=== PATIENT | female | born 1975 | race Caucasian/White ===

== ENCOUNTER → 2018-01-10 09:58 | Outpatient (BNVA) | payer MEDICARE, MEDICAID, SELFPAY | PROVIDERS: PCP Internal Medicine; Visit Provider Orthopaedic Surgery | DX: M17.11 Unilateral primary osteoarthritis, right knee (principal) | CPT/HCPCS: 20610; 99213; J7325 ==

== ENCOUNTER 2018-02-13 16:51 | Outpatient (REF) | payer MEDICARE, MEDICAID, SELFPAY ==
[2018-02-13 21:11] LABS: ALT 41 U/L (12-78); AST 26 U/L (15-37); Albumin 3.9 g/dL (3.4-5.0); Alkaline Phosphatase 101 U/L (46-116); Anion Gap 13.7 mmol/L (3-11); BUN 12 mg/dL (7-18); Bilirubin, Total 0.3 mg/dL (0.2-1.0); CO2 25.3 mmol/L (21.0-32.0); CREATININE 1.12 mg/dL (0.55-1.02); Calcium 9.6 mg/dL (8.5-10.1); Chloride 104 mmol/L (98-107); Estimated GFR 53.09 (mL/min/1.73m2); Glucose 87 mg/dL (70-100); Potassium 4.1 mmol/L (3.5-5.1); Sodium 143 mmol/L (136-145); Total Protein 7.4 g/dL (6.4-8.2)
== END 2018-02-13 17:11 ==
LOC: NCHCN 16:51
PROVIDERS: PCP Internal Medicine; Visit Provider Nurse Practitioner
DX: R94.4 Abnormal results of kidney function studies (principal)
CPT/HCPCS: 80053

== ENCOUNTER → 2018-02-21 09:05 | Outpatient (BNVA) | payer MEDICARE, MEDICAID, SELFPAY | PROVIDERS: PCP Internal Medicine; Visit Provider Nurse Practitioner Adult Health | DX: G80.9 Cerebral palsy, unspecified (principal); R53.1 Weakness; G44.209 Tension-type headache, unspecified, not intractable | CPT/HCPCS: 99204; 99215 ==

== ENCOUNTER 2018-03-03 01:08 | Outpatient (CLI) | payer MEDICARE, MEDICAID, SELFPAY ==
--- NOTE | 2018-03-03 08:41 | DI.MRI_ITS ---
SYMPTOM/DIAGNOSIS: NEW LT SIDED WEAKNESS, H/O CEREBRAL PALSY, R53.1 BRAIN MRI: Routine noncontrast examination was performed. There is mild increased T 2 signal in the periventricular region bilaterally. This is nonspecific. No evidence of an intracranial mass is seen. The ventricles and sulci are consistent with the patient's age. The ventricles are intact. The basilar cisterns are patent. The diffusion weighted images have a normal appearance. No evidence of an acute infarct is seen. There is no evidence of intracranial hemorrhage. There is a normal flow void seen in the [place]. There is near complete opacification of the left maxillary sinus and complete opacification of the right maxillary sinus. This may reflect chronic sinusitis but multiple polyps or mucus retention cysts cannot be excluded. There is mucosal thickening seen in the sphenoid sinuses and ethmoid air cells bilaterally. The orbits and retro-orbital soft tissues are grossly unremarkable. IMPRESSION: Mild T 2 hyperintensity in the periventricular white matter. This is nonspecific. This may represent early small vessel ischemic disease or other demyelinating process. Post contrast MRI should be considered for further evaluation. Findings of pansinusitis. No evidence of an acute infarct.
== END 2018-03-03 01:28 ==
PROVIDERS: PCP Internal Medicine; Visit Provider Nurse Practitioner Adult Health
DX: R29.898 Other symptoms and signs involving the musculoskeletal system (principal); R53.1 Weakness; G80.9 Cerebral palsy, unspecified; J32.4 Chronic pansinusitis
CPT/HCPCS: 70551

== ENCOUNTER 2018-03-10 01:29 | Outpatient (CLI) | payer MEDICARE, MEDICAID, SELFPAY ==
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
== END 2018-03-10 01:49 ==
PROVIDERS: PCP Internal Medicine; Visit Provider Psychiatry & Neurology Neurology
DX: R51 Headache (principal); M25.519 Pain in unspecified shoulder; M54.2 Cervicalgia; R25.2 Cramp and spasm; G80.2 Spastic hemiplegic cerebral palsy
CPT/HCPCS: 72141

== ENCOUNTER → 2018-04-20 12:36 | Outpatient (BNVA) | payer MEDICARE, MEDICAID, SELFPAY | PROVIDERS: PCP Internal Medicine; Visit Provider Psychiatry & Neurology Neurology | DX: G80.9 Cerebral palsy, unspecified (principal); R53.1 Weakness; R29.2 Abnormal reflex | CPT/HCPCS: 99214 ==

== ENCOUNTER 2018-05-19 00:29 | Outpatient (CLI) | payer MEDICARE, MEDICAID, SELFPAY ==
--- NOTE | 2018-05-19 08:45 | DI.MRI_ITS ---
SYMPTOMS/DIAGNOSIS: NEW LEFT BABINSKI REFLEX AND LEFT WEAKNESS, HYPERREFLEXIA, R29.2, ABNORMAL REFLEX MRI OF THE THORACIC SPINE: Routine noncontrast examination was performed. There is normal signal in the spinal cord. No evidence of a mass is seen in the spinal canal. There is normal marrow signal. No focal disc herniation, central spinal canal or neural foraminal stenosis is seen in the thoracic spine. IMPRESSION: Negative MRI of the thoracic spine.
== END 2018-05-19 00:49 ==
PROVIDERS: PCP Internal Medicine; Visit Provider Psychiatry & Neurology Neurology
DX: R29.2 Abnormal reflex (principal); R29.898 Other symptoms and signs involving the musculoskeletal system
CPT/HCPCS: 72146

== ENCOUNTER 2018-05-22 07:00 | Outpatient (CLI) | payer MEDICARE, MEDICAID, SELFPAY ==
--- NOTE | 2018-05-22 12:45 | DI.MAMMO_ITS ---
SYMPTOM/DIAGNOSIS: SCREENING, Z12.31, FAM HX, Z80.3, BASELINE MAMMOGRAMS: Mammograms were interpreted according to the usual protocol including computer analysis with CAD system, tomosynthesis and C view imaging. No priors. Breast density B. No suspicious masses or microcalcifications are seen. There is no definite evidence of malignancy. IMPRESSION: Negative mammogram. Routine screening is recommended. Category I. MQSA ASSESSMENT OF FINDINGS: Negative. Category 1. Patient will receive a letter notifying them of these results. BI-RADS category B. There are scattered areas of fibroglandular density.
== END 2018-05-22 07:20 ==
PROVIDERS: PCP Internal Medicine; Visit Provider Nurse Practitioner
DX: Z12.31 Encounter for screening mammogram for malignant neoplasm of breast (principal); Z80.3 Family history of malignant neoplasm of breast
CPT/HCPCS: 77063; 77067

== ENCOUNTER 2018-06-12 14:25 | Emergency (ER) | payer MEDICARE, MEDICAID, SELFPAY ==
[2018-06-12 14:32] VITALS: BP 164/96; PULSE 90; RESP 20; TEMP 37.1; O2SAT 97
--- NOTE | 2018-06-12 14:42 | W.ED.GENAD ---
Discharge Plan Disposition Patient Disposition: HOME Condition: Stable Discharge Details Chief Complaint: Fever Clinical Impression: Acute frontal sinusitis Primary Care Provider: Rodrigo Corrales ED Provider: Felix Petersen Home Meds and New Rx's Prescriptions: No Action betamethasone dipropionate 45 GM cream 45 gm Topical BID RF: 0 omeprazole [Prilosec] 20 MG capsule,delayed release(DR/EC) 20 mg PO DAILY RF: 0 Maalox Maximum Strength 355 ML suspension 10 ml PO PRN RF: 0 penicillin V potassium 250 mg Tablet 250 mg PO BID RF: 0 Medical Decision Making 42-year-old female who is on day 2 of Augmentin for a sinus infection diagnosed in ENT clinic. She was concerned because she had a low-grade fever at home today and thought that she should be reevaluated. She arrives a temperature of 37, pulse 90, mild hypertension. Her history and exam are consistent with acute maxillary sinusitis. She will continue the prescribed Augmentin. She is given ibuprofen in the emergency department and is stable for discharge to home HPI General Mode of arrival: ambulatory. Date/Time Provider Initiated Documentation: 06/12/18 14:31. Limitations to Documentation: no limitations. Information obtained by: patient. History of Present Illness 42 year old F presents to the emergency department with the chief complaint of On Augmentin for sinus infection, now with fever at home, Quality is described as aching, and is localized to the head and face. Patient reports no radiation. Patient started experiencing this hour(s) and it has been constant. No relieving factors improve symptom(s), No exacerbating factors reported . Patient notes no other symptoms.. Patient did receive the following treatments prior to arrival, none Related Data Home Medications Medication Instructions Recorded Confirmed alum-mag hydroxide-simeth [Maalox 10 ml PO PRN ml 04/26/13 06/12/18 Maximum Strength Susp] betamethasone dipropionate 45 gm TOPICAL BID script 04/26/13 06/12/18 omeprazole [Prilosec] 20 mg PO DAILY tab-cap 04/26/13 06/12/18 penicillin V potassium 250 mg PO BID 06/12/18 06/12/18 Allergies Allergy/AdvReac Type Severity Reaction Status Date / Time oxycodone HCl Allergy Intermediate Agitation Unverified 06/12/18 14:35 [From OxyContin] cyclobenzaprine HCl Allergy Mild Unverified 06/12/18 14:35 [From Flexeril] ketoprofen Allergy Mild Skin Rash Unverified 06/12/18 14:35 acetaminophen [From Percocet] Allergy Unverified 06/12/18 14:35 TIDE Allergy Unknown Uncoded 06/12/18 14:35 FABRIC SOFTNER Allergy Uncoded 06/12/18 14:35 ORUVAL Allergy Uncoded 06/12/18 14:35 General Stated Complaint: Fever EILEEN: 4 Review of Systems Review of Systems 6 systems reviewed and otherwise - [facility] Medical History Tobacco use (Acute) Obesity (Chronic) Depression (Chronic) Cerebral palsy (Chronic) Asthma (Chronic) Dermatitis (Acute) Heartburn (Acute) Headache (Acute) Elevated serum creatinine (Acute) Hyperlipidemia (Chronic) H/O: hysterectomy (Chronic) delivery delivered (Acute) Anxiety disorder (Chronic 04/30/13) Primary osteoarthritis of right knee (Chronic) Surgical History History of toe surgery (Acute) S/P right knee arthroscopy (Acute) Family History Mother Emphysema lung Hypertension Father Diabetes Hypertension Social History lives independently: Yes current occupational status: disabled Smoking and Tabacco status: Current every day alcohol intake: current alcohol intake frequency: holidays/special occasions only substance use type: does not use Exam Narrative Exam Narrative: GEN: awake, alert, oriented 3. Pleasant, well groomed, interactive. HEAD: Normocephalic, atraumatic ENT: Mucous membranes moist, oropharynx unremarkable, External ear exam unremarkable, tympanic membranes clear bilaterally. Bilateral frontal sinus tenderness to percussion EYES: PERRL, EOMI NECK: Full ROM, no DRU, no menigismus CHEST/RESP: Nontender, clear to auscultation bilateral, no wheeze/rhonchi/rales CARDIOVASCULAR: RRR, no murmur, rub roxi. 2+ Rad pulse bilateral ABDOMEN: Soft, nontender, no mass. +Bowel sounds EXT: Full ROM, no edema, no rash Neuro: Grossly normal neurologic exam, conversant, interactive. Psych: Speech fluent, thoughts congruent, affect normal Course Vital Signs Temperature 37.1 C 06/12/18 14:32 Pulse 90 06/12/18 14:32 Respiratory Rate 20 06/12/18 14:32 Blood Pressure 164/96 H 06/12/18 14:32 Pulse Oximetry 97 06/12/18 14:32 Temperature 37.1 C 06/12/18 14:32 Temperature Source Temporal Artery Scan 06/12/18 14:32 Pulse 90 06/12/18 14:32 Respiratory Rate 20 06/12/18 14:32 Respiratory Effort Non-Labored 06/12/18 14:32 Blood Pressure 164/96 H 06/12/18 14:32 Blood Pressure Position Sitting 06/12/18 14:32 Pulse Oximetry 97 06/12/18 14:32 Oxygen Delivery Method Room Air 06/12/18 14:32 Oxygen Flow Rate 0 06/12/18 14:32 Pain Level 4 06/12/18 14:32
--- NOTE | 2018-06-12 14:45 | ED.GENADUL_ITS ---
Discharge Plan Disposition Patient Disposition: HOME Condition: Stable Discharge Details Chief Complaint: Fever Clinical Impression: Acute frontal sinusitis Primary Care Provider: Rodrigo Corrales ED Provider: Felix Petersen Home Meds and New Rx's Prescriptions: No Action betamethasone dipropionate 45 GM cream 45 gm Topical BID RF: 0 omeprazole [Prilosec] 20 MG capsule,delayed release(DR/EC) 20 mg PO DAILY RF: 0 Maalox Maximum Strength 355 ML suspension 10 ml PO PRN RF: 0 penicillin V potassium 250 mg Tablet 250 mg PO BID RF: 0 Medical Decision Making 42-year-old female who is on day 2 of Augmentin for a sinus infection diagnosed in ENT clinic. She was concerned because she had a low-grade fever at home today and thought that she should be reevaluated. She arrives a temperature of 37, pulse 90, mild hypertension. Her history and exam are consistent with acute maxillary sinusitis. She will continue the prescribed Augmentin. She is given ibuprofen in the emergency department and is stable for discharge to home HPI General Mode of arrival: ambulatory . Date/Time Provider Initiated Documentation: 06/12/18 14:31 . Limitations to Documentation: no limitations . Information obtained by: patient . History of Present Illness 42 year old F presents to the emergency department with the chief complaint of On Augmentin for sinus infection, now with fever at home, Quality is described as aching, and is localized to the head and face. Patient reports no radiation. Patient started experiencing this hour(s) and it has been constant. No relieving factors improve symptom(s), No exacerbating factors reported . Patient notes no other symptoms.. Patient did receive the following treatments prior to arrival, none Related Data Home Medications Medication Instructions Recorded Confirmed alum-mag hydroxide-simeth [Maalox 10 ml PO PRN ml 04/26/13 06/12/18 Maximum Strength Susp] betamethasone dipropionate 45 gm TOPICAL BID script 04/26/13 06/12/18 omeprazole [Prilosec] 20 mg PO DAILY tab-cap 04/26/13 06/12/18 penicillin V potassium 250 mg PO BID 06/12/18 06/12/18 Allergies Allergy/AdvReac Type Severity Reaction Status Date / Time oxycodone HCl Allergy Intermediate Agitation Unverified 06/12/18 14:35 [From OxyContin] cyclobenzaprine HCl Allergy Mild Unverified 06/12/18 14:35 [From Flexeril] ketoprofen Allergy Mild Skin Rash Unverified 06/12/18 14:35 acetaminophen [From Percocet] Allergy Unverified 06/12/18 14:35 TIDE Allergy Unknown Uncoded 06/12/18 14:35 FABRIC SOFTNER Allergy Uncoded 06/12/18 14:35 ORUVAL Allergy Uncoded 06/12/18 14:35 General Stated Complaint: Fever EILEEN: 4 Review of Systems Review of Systems 6 systems reviewed and otherwise - [facility] Medical History Tobacco use (Acute) Obesity (Chronic) Depression (Chronic) Cerebral palsy (Chronic) Asthma (Chronic) Dermatitis (Acute) Heartburn (Acute) Headache (Acute) Elevated serum creatinine (Acute) Hyperlipidemia (Chronic) H/O: hysterectomy (Chronic) delivery delivered (Acute) Anxiety disorder (Chronic 04/30/13) Primary osteoarthritis of right knee (Chronic) Surgical History History of toe surgery (Acute) S/P right knee arthroscopy (Acute) Family History Mother Emphysema lung Hypertension Father Diabetes Hypertension Social History lives independently: Yes current occupational status: disabled Smoking and Tabacco status: Current every day alcohol intake: current alcohol intake frequency: holidays/special occasions only substance use type: does not use Exam Narrative Exam Narrative: GEN: awake, alert, oriented 3. Pleasant, well groomed, interactive. HEAD: Normocephalic, atraumatic ENT: Mucous membranes moist, oropharynx unremarkable, External ear exam unremarkable, tympanic membranes clear bilaterally. Bilateral frontal sinus tenderness to percussion EYES: PERRL, EOMI NECK: Full ROM, no DRU, no menigismus CHEST/RESP: Nontender, clear to auscultation bilateral, no wheeze/rhonchi/rales CARDIOVASCULAR: RRR, no murmur, rub roxi. 2+ Rad pulse bilateral ABDOMEN: Soft, nontender, no mass. +Bowel sounds EXT: Full ROM, no edema, no rash Neuro: Grossly normal neurologic exam, conversant, interactive. Psych: Speech fluent, thoughts congruent, affect normal Course Vital Signs Temperature 37.1 C 06/12/18 14:32 Pulse 90 06/12/18 14:32 Respiratory Rate 20 06/12/18 14:32 Blood Pressure 164/96 H 06/12/18 14:32 Pulse Oximetry 97 06/12/18 14:32 Temperature 37.1 C 06/12/18 14:32 Temperature Source Temporal Artery Scan 06/12/18 14:32 Pulse 90 06/12/18 14:32 Respiratory Rate 20 06/12/18 14:32 Respiratory Effort Non-Labored 06/12/18 14:32 Blood Pressure 164/96 H 06/12/18 14:32 Blood Pressure Position Sitting 06/12/18 14:32 Pulse Oximetry 97 06/12/18 14:32 Oxygen Delivery Method Room Air 06/12/18 14:32 Oxygen Flow Rate 0 06/12/18 14:32 Pain Level 4 06/12/18 14:32
[2018-06-12] MEDS: Ibuprofen 800 MG TAB PO (14:52)
[2018-06-12 15:06] VITALS: BP 164/96; PULSE 90; RESP 20; TEMP 37.1; O2SAT 97
== END 2018-06-12 14:55 | disposition home or self-care (01) ==
LOC: ER 14:50
PROVIDERS: Emergency Provider Emergency Medicine; PCP Internal Medicine
DX: J01.10 Acute frontal sinusitis, unspecified (principal)
CPT/HCPCS: 99282

== ENCOUNTER 2018-07-27 13:44 | Outpatient (CLI) | payer MEDICARE, MEDICAID, SELFPAY | END 2018-07-27 14:04 | PROVIDERS: PCP Internal Medicine; Visit Provider Orthopaedic Surgery | DX: M17.11 Unilateral primary osteoarthritis, right knee (principal) | CPT/HCPCS: 20610; 99211; 99212; J7325 ==

== ENCOUNTER 2020-06-26 16:31 | Outpatient (REF) | payer MEDICARE, MEDICAID, SELFPAY ==
[2020-06-26 20:10] LABS: HCT 48.4 % (36.0-46.0); HGB 16.1 g/dL (11.2-15.7); MCH 28.4 pg (27.0-33.0); MCHC 33.3 % (32.0-36.0); MCV 85.4 fL (80-95); MPV 10.2 fL (8.0-11.0); Platelet Count 325 10^3/uL (130-400); RBC 5.67 10^6/uL (3.93-5.22); RDW 14.5 % (11.7-14.6); RDW-SD 45.2 fL; WBC 10.11 10^3/uL (4.4-10.8)
[2020-06-26 20:32] LABS: ALT 69 U/L (14-59); AST 38 U/L (15-37); Albumin 4.2 g/dL (3.4-5.0); Alkaline Phosphatase 106 U/L (46-116); Anion Gap 14.3 mmol/L (3-11); BUN 17 mg/dL (7-18); Bilirubin, Total 0.3 mg/dL (0.2-1.0); CO2 23.7 mmol/L (21.0-32.0); CREATININE 1.1 mg/dL (0.55-1.02); Calcium 9.7 mg/dL (8.5-10.1); Calculated LDL 202 mg/dL (<100); Chloride 103 mmol/L (98-107); Cholesterol 278 mg/dL (<200); Estimated GFR 53.71 (mL/min/1.73m2); Glucose 88 mg/dL (74-106); HDL Cholesterol 48 mg/dL (40-60); Sodium 141 mmol/L (136-145); Total Protein 7.7 g/dL (6.4-8.2); Triglyceride 144 mg/dL (<150)
[2020-06-26 20:39] LABS: Hemoglobin A1C 5.7 % (<5.7)
== END 2020-06-26 16:32 | disposition home or self-care (01) ==
LOC: NCHCN 16:31
PROVIDERS: PCP Internal Medicine; Visit Provider Family Medicine
DX: R03.0 Elevated blood-pressure reading, without diagnosis of hypertension (principal); E78.5 Hyperlipidemia, unspecified; G80.9 Cerebral palsy, unspecified
CPT/HCPCS: 80053; 80061; 85027; 83036

== ENCOUNTER 2021-02-12 14:37 | Outpatient (CLI) | payer MEDICARE, MEDICAID, SELFPAY ==
--- NOTE | 2021-02-12 10:15 | DI.RAD_ITS ---
Exam(s) XR KNEE RT 4V AP,LAT,ERMA,PAT EXAM: XR KNEE RT 4V AP,LAT,ERMA,PAT CLINICAL HISTORY: eval R knee pain TECHNIQUE: COMPARISON: CR RIGHT KNEE 3 VIEWS from 03/09/2016 FINDINGS: Five views were obtained. Cartilaginous joint spaces appear fairly well maintained. No significant knee joint effusion seen. No bony or soft tissue abnormality seen. IMPRESSION: Negative examination of the knee. RADIATION DOSE DELIVERED: Total DLP
== END 2021-02-12 14:38 | disposition home or self-care (01) ==
LOC: DIORS 14:38
PROVIDERS: PCP Internal Medicine; Referring Provider Internal Medicine; Visit Provider Student in an Organized Health Care Education/Training Program
DX: M17.11 Unilateral primary osteoarthritis, right knee (principal); G80.9 Cerebral palsy, unspecified; M25.561 Pain in right knee
CPT/HCPCS: 99213; 73564

== ENCOUNTER 2021-03-09 00:29 | Outpatient (CLI) | payer MEDICARE, MEDICAID, SELFPAY ==
--- NOTE | 2021-03-09 06:45 | DI.MRI_ITS ---
Exam(s) MR LOWER JOINT RT WO EXAM: MR LOWER JOINT RT WO CLINICAL HISTORY: knee pain, degenerative joint disease rt knee,m17.11. TECHNIQUE: Multiplanar multisequence MRI was performed. COMPARISON: MR MRI R LOWER JOINT WO CONT from 02/24/2017 CR XR KNEE RT 4V AP,LAT,ERMA,PAT from 02/12/2021 FINDINGS: BONES: There is no fracture or contusion pattern. At the inferior aspect of the lateral patellar face t, there is thinning of the articular cartilage and subchondral edema. JOINTS: Articular cartilage is otherwise unremarkable. There is a small amount of fluid in the joint space. TENDONS: Extensor mechanism: Unremarkable. Medial retinaculum: Unremarkable. Lateral retinaculum: Unremarkable. Popliteus: Unremarkable. MUSCLES: Unremarkable. MENISCI: The medial meniscus is unremarkable. The lateral meniscus is unremarkable. SOFT TISSUES: Unremarkable. LIGAMENTS: Anterior Cruciate: Unremarkable. Posterior Cruciate: Unremarkable. Medial Collateral:Unremarkable. Lateral Collateral: Unremarkable. OTHER: IMPRESSION: 1. No evidence of meniscal or ligament tear. 2. Chondromalacia patella. DATA REPOSITORY:
== END 2021-03-09 00:49 ==
PROVIDERS: PCP Internal Medicine; Visit Provider Student in an Organized Health Care Education/Training Program
DX: M25.561 Pain in right knee (principal); M25.461 Effusion, right knee; M17.11 Unilateral primary osteoarthritis, right knee; M22.41 Chondromalacia patellae, right knee
CPT/HCPCS: 73721

== ENCOUNTER → 2021-03-23 08:49 | Outpatient (BNVA) | payer MEDICARE, MEDICAID, SELFPAY | PROVIDERS: PCP Internal Medicine; Referring Provider Internal Medicine; Visit Provider Student in an Organized Health Care Education/Training Program | DX: M17.11 Unilateral primary osteoarthritis, right knee (principal); G81.11 Spastic hemiplegia affecting right dominant side; Z71.2 Person consulting for explanation of examination or test findings | CPT/HCPCS: 20610; J7318 ==

== ENCOUNTER 2022-08-25 12:43 | Outpatient (REF) | payer MEDICARE, MEDICAID, SELFPAY | END 2022-08-25 12:44 | disposition home or self-care (01) | LOC: LBN 12:43 | PROVIDERS: PCP Internal Medicine; Visit Provider Physician Assistant Medical | DX: J02.9 Acute pharyngitis, unspecified (principal) | CPT/HCPCS: 87081 ==

== ENCOUNTER → 2023-06-14 12:34 | Outpatient (CLI) | payer MEDICARE, MEDICAID, SELFPAY ==
--- NOTE | 2023-06-14 13:30 | DI.RAD_ITS ---
Exam(s) XR ANKLE RT COMPLETE EXAM: XR ANKLE RT COMPLETE CLINICAL HISTORY: evaluate, rt achilles tendinitis, rt ankle pain, M76.61, M25.571. TECHNIQUE: 2D digital imaging was performed of the right ankle. Three images were obtained. AP, la teral and oblique views were obtained. COMPARISON: No exams were available for comparison FINDINGS: BONES: No acute fracture is present. No bony destructive lesion is seen. JOINTS: The ankle mortise is normally aligned. SOFT TISSUE: Normal. IMPRESSION: 1. No acute fracture or dislocation. The joint spaces are well maintained. 2. There is concern for Achilles tendon injury, MRI should be obtained for further evaluation. DATA REPOSITORY: RADIATION DOSE DELIVERED:
== END ==
PROVIDERS: PCP Internal Medicine; Visit Provider Nurse Practitioner Family
DX: M76.61 Achilles tendinitis, right leg (principal); M25.571 Pain in right ankle and joints of right foot
CPT/HCPCS: 73610

== ENCOUNTER → 2023-06-22 01:13 | Outpatient (CLI) | payer MEDICARE, MEDICAID, SELFPAY ==
--- OUTSIDE RECORDS SUMMARY | 2023-06-22 01:14 | XMS_ITS | Continuity of Care Document ---
Author Name Unknown Organization [facility] Address [address] [place] [id number] Encounter [facility] NBR [id number] Date(s): 05/25/22 - 05/25/[address] [address]- Encounter Diagnosis Procedure and treatment not carried out, unspecified reason(Final) - Discharge Disposition: Home or Self Care Attending Physician: Jane Gunter Admitting Physician: Jane Gunter
--- NOTE | 2023-06-22 07:45 | DI.MRI_ITS ---
Exam(s) MR LOWER JOINT RT WO EXAM: MR LOWER JOINT RT WO CLINICAL HISTORY: evaluate achilles tendon,achilles tendinitis,M76.661 TECHNIQUE: Multiplanar multisequence MRI was performed without intravenous contrast. COMPARISON: No exams were available for comparison FINDINGS: SKIN: No evidence of ulcer nor subcutaneous tract. BONES/JOINTS: No evidence of fracture nor bone contusion. No prominent ankle joint effusion nor subt alar joint effusion. Small effusion noted in the peripheral aspect of the field of view within the a rticulation between the great toe metatarsal and medial cuneiform. The talar dome appears unremarkab le. The ankle mortise is maintained. There is no evidence of para-articular ganglion.There is no ev idence of osseous tarsal coalition. LIGAMENTS: The anterior and posterior tibiofibular and calcaneofibular ligaments are intact. The ante rior and posterior talofibular ligaments are intact. The deltoid ligament is intact. SINUS TARSI: There is no loss of the normal fat signal in this space. Interosseous ligament is intac t. There is no evidence of sinus tarsi ganglion cyst. MUSCULOTENDINOUS STRUCTURES: Achilles tendon: There is fusiform thickening of the Achilles tendon over a cephalocaudal distance of 10 cm. Maximum thickness is 11 mm. No evidence of abnormal acute signal within the tendon to sugge st acute tear. No evidence of insertional tendinitis. No enthesophyte on the posterior calcaneus. Plantar fascia: Unremarkable. No evidence of tear, abnormal thickening, nor abnormal nodularity. Anterior Extensor tendons: Unremarkable. Medial Tendons: Posterior Tibialis: Unremarkable. No tear or tenosynovitis evident. Flexor Digitorum longus: Unremarkable. No tear or tenosynovitis evident. Flexor Hallicus longus: Unremarkable. No tear or tenosynovitis evident. Lateral Tendons: Peroneus longus: Unremarkable. No tear nor tenosynovitis evident. Peroneus brevis:Unremarkable. No tear nor tenosynovitis evident. OTHER FINDINGS: None. IMPRESSION: 1. Main finding here is long length fusiform thickening of the Achilles tendon consistent with chroni c tendinitis/tendinosis. Maximum AP thickness is 11 mm. 2. No evidence of insertional tendinitis, enthesophyte, nor Danette deformity. DATA REPOSITORY:
== END ==
PROVIDERS: PCP Family Medicine; Visit Provider Nurse Practitioner Family
DX: M76.61 Achilles tendinitis, right leg (principal)
CPT/HCPCS: 73721

== ENCOUNTER → 2023-07-04 10:36 | Outpatient (BNVA) | payer MEDICARE, MEDICAID, SELFPAY | PROVIDERS: PCP Family Medicine; Referring Provider Family Medicine | DX: M67.88 Other specified disorders of synovium and tendon, other site (principal); G81.11 Spastic hemiplegia affecting right dominant side | CPT/HCPCS: 99213 ==

== ENCOUNTER → 2023-09-12 08:58 | Outpatient (BNVA) | payer MEDICARE, MEDICAID, SELFPAY | PROVIDERS: PCP Family Medicine; Referring Provider Family Medicine; Visit Provider Student in an Organized Health Care Education/Training Program | DX: M67.88 Other specified disorders of synovium and tendon, other site (principal) | CPT/HCPCS: 99213 ==

== ENCOUNTER 2024-03-09 06:01 | Day surgery (SDC) | payer MEDICARE, MEDICAID, SELFPAY ==
--- NOTE | 2024-03-08 18:54 | W.PREOPHP ---
Assessment and Plan Assessment and plan (1) Posterior subcapsular age-related cataract of left eye: Status: Acute Assessment and plan: Assessment: Visually significant cataract of both eyes. Plan: Cataract extraction with intraocular lens implant, left eye, followed by the right eye. (2) Nuclear age-related cataract, left eye: Status: Acute Assessment and plan: Assessment: Visually significant cataract of both eyes. Plan: Cataract extraction with intraocular lens implant, left eye, followed by the right eye (3) Posterior subcapsular age-related cataract, right eye: Status: Acute Assessment and plan: Assessment: Visually significant cataract of both eyes. Plan: Cataract extraction with intraocular lens implant, left eye, followed by the right eye (4) Nuclear age-related cataract, right eye: Status: Acute Assessment and plan: Assessment: Visually significant cataract of both eyes. Plan: Cataract extraction with intraocular lens implant, left eye, followed by the right eye History of Present Illness History of Present Illness Chief Complaint: Progressive decreased vision both eyes Narrative: The patient is a 48-year-old lady with history of progressive decreased vision in both eyes at both distance and near. She has difficulty with depth perception and has had recent falls. She has difficulty reading road signs and small print. She has a history of amblyopia in the left eye. Review of Systems All systems reviewed & are unremarkable except as noted in HPI and below PFSH All Active Problems Nuclear age-related cataract, left eye (Acute) Posterior subcapsular age-related cataract of left eye (Acute) Nuclear age-related cataract, right eye (Acute) Posterior subcapsular age-related cataract, right eye (Acute) Achilles tendinosis of right lower extremity (Acute) Corns and callosities (Acute) Knee osteoarthritis (Acute) Spastic hemiplegia affecting right dominant side (Acute) Degenerative joint disease of right knee (Chronic) Babinski reflex (Acute) Left-sided weakness (Acute) Tobacco use (Acute) Obesity (Chronic) Depression (Chronic) Cerebral palsy (Chronic) Asthma (Chronic) Dermatitis (Acute) Heartburn (Acute) Headache (Acute) Elevated serum creatinine (Acute) Hyperlipidemia (Chronic) Anxiety disorder (Chronic 04/30/13) S/P right knee arthroscopy (Acute) delivery delivered (Acute) History of toe surgery (Acute) H/O: hysterectomy (Chronic) 06/25/2003 Primary osteoarthritis of right knee (Chronic) Medical History Heart murmur Per pt. states she has had this all her life, and never had any issues with it Myopia Refractive amblyopia of both eyes Spongiotic dermatitis Arthropathy Hip pain Shoulder pain Sinusitis Family history of breast cancer Elevated blood pressure reading [place] of right foot Chronic constipation Knee joint pain Vitamin D deficiency Surgical History H/O right knee surgery Family History Mother Emphysema lung Hypertension Father Diabetes Hypertension Social History Smoking/Tobacco Use Status: Current every day Tobacco Type: cigarettes Smoking packs per day: 0.5 Smoking cigarettes per day: 10.0 Smoking risk assessment performed?: Yes Alcohol Intake: current Alcohol Intake frequency: holidays/special occasions only Drug use: Never Substance use type: does not use Housing: other Do you feel safe at home: Yes Do you feel safe in your relationship?: Yes Meds Allergies and Home Medications Allergies Allergy/AdvReac Type Severity Reaction Status Date / Time cyclobenzaprine HCl (From Allergy Mild numbs her Verified 03/09/24 06:21 Flexeril) legs ketoprofen Allergy Mild Skin Rash Verified 03/09/24 06:21 acetaminophen (From Percocet) Allergy Itching Verified 03/09/24 06:21 oxycodone HCl (From AdvReac Intermediate Agitation Verified 03/09/24 06:21 OxyContin) TIDE Allergy Unknown Hives Uncoded 03/09/24 06:21 FABRIC SOFTNER Allergy Hives Uncoded 03/09/24 06:21 ORUVAL Allergy Nausea Uncoded 03/09/24 06:21 Home Medications ?Medication ?Instructions ?Recorded ?Confirmed ?Type aluminum-mag hydroxide-simethicone 10 ml PO PRN 04/26/13 03/09/24 History 400 mg-400 mg-40 mg/5 mL oral susp (Maalox Maximum Strength) albuterol sulfate 90 mcg/actuation 2 puff inhalation Q6H PRN 05/28/21 03/09/24 History aerosol inhaler (ProAir HFA) diclofenac sodium 1 % topical gel 4 g topical QID PRN Right knee 06/10/21 03/09/24 Rx (Voltaren Arthritis Pain) pain #100 grams Exam Eyes Other: Most recent ocular examination is significant for corrected visual acuity of 20/40 in each eye. Extract motility is normal. Intraocular pressure is 13 OD, 15 OS. Slit-lamp examination shows mild nuclear cataract OU, but with significant posterior subcapsular opacity in each eye, left eye worse than right. Funduscopic examination shows disc cupping of 0.2 OU with normal vessels, macula, peripheral retina and vitreous. Resp Auscultation: clear to auscultation bilaterally Cardio Rate: regular rate Rhythm: regular rhythm
--- OUTSIDE RECORDS SUMMARY | 2024-03-09 06:03 | XMS_ITS | Encounter Summary ---
Author Organization [facility] [place] [address] Care Team Providers Care Tab Cutter Name Role Phone Rodrigo Corrales MD Primary Care Provider [phone] Reason for Visit * Reason Comments Suture / Staple Removal Encounter Details Date Type Department Care Team (Late st Contact Info) Description 10/05/2011 11:30 AM EDT Office Visit Dermatology [address] [place] [address] [address] [place] [address] Gopal Mata MD [address] [place] [address] RD, [place] [address] Spongiotic dermatitis (Primary Dx) Social History Tobacco Use Types Packs/Day Years Used Date Smoking Tobacco: Never Sex and Gender Information Value Date Recorded Sex Assigned at Not on file Gender Identity Not on file Sexual Orientation Not on file documented as of this encounter Progress Notes * Gopal Mata MD - 10/05/2011 11:56 AM EDT Problem: Followup spongiotic dermatitis with eosinophils. Thanh follows up, and the biopsy was read as spongiotic dermatitis with eosinophils. She has had some improvement with applications of the betamethasone dipropionate cream that she had from Dr. Neely to the pruritic sites, but she is still itchy. Physical examination reveals reduced erythema and reduced spongiosis, but still active dermatitic patches over either elbow and smaller areas just below the nape of her neck. Assessment and Plan: Spongiotic dermatitis with eosinophils. a. The patient started using an HD-type Tide detergent in her washing machine. I recommended trying Dreft fragrance free instead. b. I recommended that she use fragrance-free Downy and Snuggle. c. I recommended that the patient stop using her body wash and instead using Dove or Ivory bar soap. d. We went basically through the patient's skincare products and recommended across the board that she avoid fragrance products and try to simplify and decrease the number of topicals that she is using. e. May certainly continue with betamethasone dipropionate cream. As dermatitis clears, may add one product back a week and see if she can find the culprit. If dermatitis continues and does not ness with the above approach, I would recommend that the patient be seen for patch testing at [facility] [place] by [place]. Chopra. f. Return to the clinic p.r.n. Copy: Dustin Tipton A.P.R.N. documented in this encounter Plan of Treatment Not on file documented as of this encounter Visit Diagnoses Diagnosis Spongiotic dermatitis- Primary Contact dermatitis and other eczema, due to unspecified cause documented in this encounter Care Teams Tab Cutter Relationship Specialty Start Date End Date Rodrigo Corrales MD [address] [place] [id number] PCP - General 09/20/11 01/05/21 documented as of this encounter
--- OUTSIDE RECORDS SUMMARY | 2024-03-09 06:03 | XMS_ITS | Clinical Summary ---
Author Organization [facility] Address [address] [place] [address] Care Team Providers Care Medical Imaging Specialist Name Role Phone Rodrigo Corrales MD Primary Care Provider Allergies Active Allergy Reactions Criticality Noted Date Comments Other - See Comments 02/28/2018 Tide detergent; Needs to buy sensitive skin products. Oxycodone Itching High 02/28/2018 Oxycodone-Acetaminophe n Itching,Nausea Only High 02/28/2018 Medications Medication Sig Dispensed Refills Start Date End Date Status OMEPRAZOLE ORAL Take 10 mg by mouth daily. 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) GERD (gastroesophageal reflux disease) Social History Tobacco Use Types Packs/Day Years Used Date Smoking Tobacco: Every Day Cigarettes 0.3 26 Smokeless Tobacco: Never Interpersonal Safety Answer Date Record ed Physically Hurt Never 12/04/2019 Verbally Threaten Not on file 12/04/2019 Sex and Gender Information Value Date Recorded Sex Assigned at Not on file Gender Identity Not on file Sexual Orientation Not on file Obstetrics History Last Filed Vital Signs Vital Sign Reading Time Taken Comments Blood Pressure - - Pulse - - Temperature - - Respiratory Rate - - Oxygen Saturation - - Inhaled Oxygen Concentration - - Weight 83.9 kg (185 lb) 02/28/2018 1304 EDT Pt r eported Height 160 cm (5' 3) 02/28/2018 1304 EDT Pt rep orted Body Mass Index 32.77 02/28/2018 1304 EDT Plan of Treatment Health Maintenance Due Date Last Done Comments Hepatitis C Screen 1974 Pneumococcal Immunization (1 of 2 - PCV) 1980 Hepatitis B Vaccine (1 of 3 - 19+ 3-dose series) 12/05 COVID-19 Vaccine ( - 2022-24 season) 2022 Care Teams Medical Imaging Specialist Relationship Specialty Start Date End Date Rodrigo Corrales MD [address] [place] [address] PCP - General 03/11/15
--- OUTSIDE RECORDS SUMMARY | 2024-03-09 06:03 | XMS_ITS | Encounter Summary ---
Author Organization [facility] Address [address] [place] [address] Care Team Providers Care Space Officer Name Role Phone Rodrigo Corrales MD Primary Care Provider [phone] Encounter Details Date Type Department Care Team (Latest Contact Info) Description 07/19/2018 13:12 EDT - 07/19/2018 23:59 EDT Hospital Encounter [address] [address] Nina Jin MD [address] [place] [phone] Discharge Disposition: Home or Self Care Social History Tobacco Use Types Packs/Day Years Used Date Smoking Tobacco: Every Day Cigarettes 0.3 26 Smokeless Tobacco: Never Sex and Gender Information Value Date Recorded Sex Assigned at Not on file Gender Identity Not on file Sexual Orientation Not on file documented as of this encounter Functional Status Functional Status Response Date of Assess ment Because of a physical, menta l, or emotional condition, does this person have difficulty doing errands alone such as visiting a doctor's office or shopping? Yes 02/28/2018 Cognitive Status Response Date of Assessm ent Because of a physical, menta l, or emotional condition, does this person have serious difficulty concentrating, remembering, or making decisions? No 02/28/2018 documented as of this encounter Discharge Diagnoses Diagnosis R26.9 Unspecified abnormalities of gait and mobility-R26.9[ICD-10-CM] G80.2 Spastic hemiplegic cerebral palsy-G80.2[ICD-10-CM] documented in this encounter Medications at Time of Discharge Medication Sig Dispensed Refills Start Date End Date OMEPRAZOLE ORAL Take 10 mg by mouth daily. documented as of this encounter Discharge Disposition Disposition Code Departure Means Destination Home or Self Longterm documented in this encounter Plan of Treatment Not on file documented as of this encounter Visit Diagnoses Not on filedocumented in this encounter Care Teams Space Officer Relationship Specialty Start Date End Date Rodrigo Corrales MD [address] [place] [address] PCP - General 03/11/15 documented as of this encounter
--- OUTSIDE RECORDS SUMMARY | 2024-03-09 06:03 | XMS_ITS | Encounter Summary ---
Author Organization [facility] Address [address] [place] [address] Care Team Providers Care Form Grader Operator Name Role Phone Rodrigo Corrales MD Primary Care Provider [phone] Encounter Details Date Type Department Care Team (Late st Contact Info) Description 07/18/2017 Results Only Imaging [facility] [phone] Unknown, Provider, Social History Tobacco Use Types Packs/Day Years Used Date Smoking Tobacco: Never Assessed Sex and Gender Information Value Date Recorded Sex Assigned at Not on file Gender Identity Not on file Sexual Orientation Not on file documented as of this encounter Plan of Treatment Pending Results Name Type Priority Associated Diagnoses Date /Time OUTSIDE IMAGES - OTHER CHEST Imaging 07/18/2017 19:33 EDT OUTSIDE IMAGES - PLAIN FILM [facility] Imaging 07/18/2017 19:33 EDT OUTSIDE IMAGES - MR [facility] Imaging 0 07/18/2017 19:33 EDT documented as of this encounter Visit Diagnoses Not on filedocumented in this encounter Care Teams Form Grader Operator Relationship Specialty Start Date End Date Rodrigo Corrales MD [address] [place] [address] PCP - General 03/11/15 documented as of this encounter
--- OUTSIDE RECORDS SUMMARY | 2024-03-09 06:03 | XMS_ITS | Encounter Summary ---
[facility] [place] [address] Care Team Providers Care Optical Engineering Manager Name Role Phone Rodrigo Corrales MD Primary Care Provider [phone] Reason for Visit * Reason Onset Date Comments Medication Refill 11/26/2014 Encounter Details Date Type Department Care Team (Late st Contact Info) Description 11/26/2014 Refill [place] [id number] Jayden Crystal MD [facility] [place] [address] Chronic low back pain Social History Tobacco Use Types Packs/Day Years Used Date Smoking Tobacco: Never Sex and Gender Information Value Date Recorded Sex Assigned at Not on file Gender Identity Not on file Sexual Orientation Not on file documented as of this encounter Plan of Treatment Not on file documented as of this encounter Visit Diagnoses Diagnosis Chronic low back pain Lumbago documented in this encounter Care Teams Optical Engineering Manager Relationship Specialty Start Date End Date Rodrigo Corrales MD [address] [place] [address] PCP - General 09/20/11 01/05/21 documented as of this encounter
--- OUTSIDE RECORDS SUMMARY | 2024-03-09 06:03 | XMS_ITS | Encounter Summary ---
Author Organization [facility] Address [address] [place] [address] Care Team Providers Care Web Ui Designer Name Role Phone Rodrigo Corrales MD Primary Care Provider [phone] Reason for Visit * Reason Onset Date Comments Appointment Related 07/16/2019 Encounter Details Date Type Department Care Team (Late st Contact Info) Description 07/16/2019 Telephone [facility] Therapy - [address] [address] Therapy, Outpatient, Appointment Related Social History Tobacco Use Types Packs/Day Years [...] No 02/28/2018 documented as of this encounter Miscellaneous Notes * Telephone Encounter - Elaine Nolan - 07/16/2019 1303 EDT Telephone Information for Cancelled Appointments The patient called to cancel their appointment with Lillian Lin PT on 07/18/19 at 1:30pm due to transportation. Pt's fiance needs to arrange for time off from work to bring her. The patient will call back to rescjoseule Elaine Nolan 07/16/2019 documented in this encounter Plan of Treatment Not on file documented as of this encounter Visit Diagnoses Not on filedocumented in this encounter Care Teams Web Ui Designer Relationship Specialty Start Date End Date Rodrigo Corrales MD [address] [place] [address] PCP - General 03/11/15 documented as of this encounter
--- OUTSIDE RECORDS SUMMARY | 2024-03-09 06:03 | XMS_ITS | Encounter Summary ---
Author Organization [facility] Address [address] [place] [id number] Care Team Providers Care Police Superintendent Name Role Phone Rodrigo Corrales MD Primary Care Provider [phone] Reason for Referral * Consult (Routine) - Specialty Report Received Specialty Diagnoses / Procedures Referred By Cinthia steven Referred To Contact Diagnoses Spastic hemiplegic cerebral palsy (HCC-CMS) Paraparesis, bilateral (HCC-CMS) Nina Jin MD [address] [place] [phone] Nina Jin MD [address] [place] [phone] Referral ID Status Reason Start Date Expiration Date Visits Requested Visits Authorized [id number] Specialty Report Received Specialty Services Required 8 1 1 Question Answer Reason for Request: Hx R deedee CP. Now BLE problems. Falling. Scheduling Comments (optional ? describe specific scheduling needs if applicable): Probably won't want to scedule till spring but check with her when calling as to when she can get trasnportation. Comments Has R AFO. Hs been having BLE problems in last few years with falls. Reason for Visit * Reason Comments New Patient Visit * Consult, Test and Treat (Routine) - Closed Specialty Diagnoses / Procedures Referred By Contyvrose t Referred To Contact Physical Medicine and Rehab Diagnoses Cerebral palsy, unspecified (HCC-CMS) Greg Soares MD [address] [place] [address] [place] [phone] [facility] Phys Med Rehab [address] [place] [address] Referral ID Status Reason Start Date Expiration Date Visits Re quested Visits Authorized [id number] Closed 1 1 Encounter Details Date Type Department Care Team (Latest Contact Info) Description 02/28/2018 13:00 EDT Office Visit [facility] Physical Medicine & Rehabilitation [place] [address] Nina Jin MD [address] [place] [phone] Spastic hemiplegic cerebral palsy (HCC-CMS) (Primary Dx); Paraparesis, bilateral (HCC-CMS); Fibromyalgia; Fatigue, unspecified type Discharge Disposition: Auto Discharge Social History Tobacco Use Types Packs/Day Years Used Date Smoking Tobacco: Every Day Cigarettes 0.3 26 Smokeless Tobacco: Never Sex and Gender Information Value Date Recorded Sex Assigned at Not on file Gender Identity Not on file Sexual Orientation Not on file documented as of this encounter Last Filed Vital Signs Vital Sign Reading Time Taken Comments Blood Pressure - - Pulse - - Temperature - - Respiratory Rate - - Oxygen Saturation - - Inhaled Oxygen Concentration - - Weight 83.9 kg (185 lb) 02/28/2018 1304 EDT Pt r eported Height 160 cm (5' 3) 02/28/2018 1304 EDT Pt rep orted Body Mass Index 32.77 02/28/2018 1304 EDT documented in this encounter Functional Status Functional Status Response [...] as of this encounter Discharge Diagnoses Diagnosis G80.2 Spastic hemiplegic cerebral palsy-G80.2[ICD-10-CM] G82.20 Paraplegia, unspecified-G82.20[ICD-10-CM] M79.7 Fibromyalgia-M79.7[ICD-10-CM] documented in this encounter Discharge Disposition Disposition Code Departure Means Destination Auto Discharge documented in this encounter Progress Notes * Nnia Jin MD - 02/28/2018 1300 EDT Subjective: Patient ID: Thanh Daigle is an 42 y.o. female. Chief Complaint Patient presents with ??? New Patient Visit HPI Thanh is a 42-year-old woman being seen at the request of her primary care provider because of increased problems with her mobility, function, strength pre-existing cerebral palsy. Patient feels her biggest problem is increasing weakness and new problems on her left side that shedid not have before. Thanh Daigle has completed the pt. intake questionnaire with pain history,aggravating and alleviating factors, PMH, family history, pain diagram, rating scale and qualifiers. This is reviewed and placed in the chart. Prior evaluations are reviewed in the chart. CP initially affected R side, eyes, thinking. Can forget things. Braces: has AFO on right. She did not bring them today molded blue plastic with foot plate. Prior brace was double upright. Recently got knee brace. Does not wear them much. Has a 4WRW with seat walker that her friend gave her. Has a rx but [facility] or [facility] didn't pay for it. Uses it in the home but hardly at all. AN dif going out for a long time. Beeen getting tired for last year., CP affects right side. Now getting problems on left. ON right. Has dragged foot But is getting worse. Her whole arm is gettign weaker . Moving slower all over.No event. Can't open jars with left. Harder to grab things with left hand. Feels like butt and leg are sleeping, tingly. No h/a today. Has been getting more of them. Saw neurologist in [facility] Recently. Getting MRI of head and spine at [facility]. 2 years ago saw them for her CP as general check up but muscles were tight, hurt all the time. Has been falling, loses balance a lot, tripped in staris and doorway. She fell while walking her dog. Trips in house all them time Primo notes that she has been losing ground over last 5 years She states activities such as dressing herself she has had to sit down to do simple on socks or pants for the last 5 years. In the kitchen she has to be very cautious with activities to avoid instability or burning or cutting herself.. Joint pain: R knee, r hip , R shoulder constant. Worsening ove r last 6 years. Gets Synvisc for right knee every 6 months. LEss effective. Muscle pain : constant : everywhere. Fluctuates Does not vary with activity. LIkes hot showers for relief. Does not like to take meds. Spasticity: For her spastic muscles she has tried a variety of different medications. She cannot name all of them but she believes she is tried been tried on Flexeril and baclofen. They only made hertired and did not seem to help her symptoms. Bladder function: Reports bladder urgency Bowels: Reports bowel movement 1-2 times per week Swallowing: Denies any issues with swallowing. Vision: No double vision. Reports she is having increasing need for stronger corrective lenses. Neurologic no history of seizures, stroke Endocrine: Denies any abnormal blood sugars. Drives automatic. Used to drive standard. She does have 2 children and 2 grandchildren. She babysits for her granddaughter. She also reports she has 2 brothers and 2 sisters. Neither of them have any movement problems or muscular disorders or pain issues. No cerebral palsy in other family members. Patient Active Problem List Diagnosis ??? Spastic hemiplegic cerebral palsy ([facility]-CMS) No past medical history on file. Patient reports omeprazole for reflux No past surgical history on file. No family history on file. No reported motor disorder or neurologic problems in known family members. Social Social History Substance Use Topics ??? Smoking status: Current Every Day Smoker Packs/day: 0.25 Years: 26.00 Types: Cigarettes ??? Smokeless tobacco: Never Used ??? Alcohol use None No current outpatient prescriptions on file prior to visit. No current facility-administered medications on file prior to visit. Allergies Allergen Reactions ??? Oxycontin [Oxycodone] Itching ??? Percocet [Oxycodone-Acetaminophen] Itching and Nausea Only ??? Other - See Comments Tide detergent; Needs to buy sensitive skin products. ROS - See HPI Objective: Ht 160 cm (63) Comment: Pt reported Wt 83.9 kg (185 lb) Comment: Pt reported BMI 32.77 kg/m2 Physical Exam Alert Oriented x3. Speech intact and communicate adequately. Respirations even, unlabored. Able to raise arms fully overhead. Able to actively range arms and legs through relatively full functional range of motion. Bilateral plantar flexion contractures: L -5 degrees, R -20 degrees Cranial nerves: Noted to have left eye adducted at rest. He can perform some abduction but this is weak. Reflexes 3+ biceps, patellar. Ankles left 0 beat/right 3 beat clonus Sensation: Qualitatively reports that touch is slightly different through the right side than her left but she can appreciate sharp pins and needles and dull sensation. Palpatory exam: Multiple areas general muscle tenderness but specific focal tender points in the low cervical paraspinal muscles bilaterally, deltoid muscle insertions, costochondral junction of the second rib and sternum bilaterally, bilateral medial and lateral epicondyles, bilateral lower lumbarparaspinals, bilateral greater trochanters, bilateral medial knee joint line. Upper Extremity: Strength Deltoid EE EF WE WF FE FF LEFT 5 5 4 4 4 5 5 RIGHT 5 5 5 4 4 5 5 MMT LOWER QUARTER 02/28/2018 HIP: Left Right Flexion 5 4 Knee: Left Right Extension 5 5 Flexion 5 5 Ankle: Left Right Dorsiflexion 5 3 Plantarflexion 5 3 Gait and Station: Observation of gait cycle, balance, coordination, and alignment of trunk/extremities, functional ROM, tone, joint laxity for all extremities. Gait observed for each bracing option listed below. Abnormal/significant findings as below. Assistive device: None Assist: None 1. Shoes: Generally slow gait with bilateral hips abduction and internally rotated. She has some steppage pattern landing on her forefoot. The right foot showing some foot drop and decrease toe clearance through her swing phase. Assessment: Thanh presents with reported decline in function over the last 5 years and particularly over the last year. I agree with the plan that she is seeing the neurologist is recommending of getting an MRI of her brain and spine. Hopefully this means she is getting one done of her cervical spine and thoracic spine. Patient herself was not sure what spine areas are being checked. We have asked that when these studies are done that copies are also sent to our radiology system sowe can get the results. Overall she is showing more generalized spasticity and dysfunction affecting both lower extremitieswith both hips showing internal rotation and adduction. Adult patient with cerebral palsy can show decline in function related to the increase energy it takes to achieve the same amount of mobility they did when younger. It is not clear to me why her leftside would show new symptoms. Whether there were subclinical changes she was not that aware of now being brought on by increased physical strain or activity is one possibility. It appears she has not felt anti-spasticity medications have been helpful. I do not have a full list what may have been tried in past years but likely fatigue could be an issue with any of them. Her exam does seem consistent with a presentation of fibromyalgia with multiple trigger points and some generalized muscle pain. With this she can experience fatigue, cognitive changes. She might benefit from trials of medications such as gabapentin or Lyrica for the symptoms. SSRIs may be helpful in managing pain. To work with her gait challenges trying to manage control and her right ankle with the contracture and foot drop and even considering left side would be worth assessing in our Brace Clinic. Patient is willing to return for this evaluation so I will place a referral request. Plan: Thanh was seen today for new patient visit. Diagnoses and all orders for this visit: Spastic hemiplegic cerebral palsy (HCC-CMS) - AMB CONS/FOLLOW UP BRACE CLINIC (INCLUDES PHYSIATRY,PREPARATION ROOM MANAGER & PHYSICAL THERAPY) Paraparesis, bilateral (HCC-CMS) - AMB CONS/FOLLOW UP BRACE CLINIC (INCLUDES PHYSIATRY,PREPARATION ROOM MANAGER & PHYSICAL THERAPY) Fibromyalgia Fatigue, unspecified type Other orders - OMEPRAZOLE ORAL; Take 10 mg by mouth daily. Requested the patient follow-up with her primary care physician regarding consideration of medications for fibromyalgia. We will await results from her neurologic workup of MRIs that were ordered from a neurologist in her area. Will schedule her back in brace clinic to look at gait response to different bracing. Future Appointments Date Time Provider Department Center 07/19/2018 13:30 Nina Jin MD Rehab Med None 07/19/2018 13:30 Rodrigo Silver, PT [facility] None Portions of this document have been prepared with speech recognition software or keyboard database reporting consultant techniques. Minor irregularities or keyboarding misprints may be present. 60 minutes face-to face time with patient, 35 minutes in education/counseling on above issues. documented in this encounter Plan of Treatment Scheduled Referrals Name Type Priority Associated Diagnoses Orde r Schedule AMB CONS/FOLLOW UP BRACE CLINIC (INCLUDES PHYSIATRY,ORTHOTIS T & PHYSICAL THERAPY) Outpatient Referral Routine Spastic Hemiplegic Cerebral Palsy (Hcc-Cms) Paraparesis, Bilateral (Hcc-Cms) Ordered: 02/28/2018 documented as of this encounter Visit Diagnoses Diagnosis Spastic hemiplegic cerebral palsy (HCC-CMS)- Primary Congenital hemiplegia Paraparesis, bilateral (HCC-CMS) Paraplegia Fibromyalgia Mylagia and myositis, unspecified Fatigue, unspecified type documented in this encounter Historical Medications * This list may reflect changes made after this encounter. Medication Sig Dispensed Refills Start Date End Date OMEPRAZOLE ORAL Take 10 mg by mouth daily. added in this encounter Care Teams Police Superintendent Relationship Specialty Start Date End Date Rodrigo Corrales MD [address] [place] [address] PCP - General 03/11/15 documented as of this encounter
--- OUTSIDE RECORDS SUMMARY | 2024-03-09 06:03 | XMS_ITS | Encounter Summary ---
Author Organization [facility] Address [address] [place] [address] Care Team Providers Care Metal Furniture Assembly Supervisor Name Role Phone Unavailable Primary Care Provider Unavailabl e Encounter Details Date Type Department Care Team (Late st Contact Info) Description 06/22/2001 Results Only [facility] - [facility] conversion [address] [place] [address] Dariel Melo MD [address] [place], [place] [id number] Social History Tobacco Use Types Packs/Day Years Used Date Smoking Tobacco: Never Assessed Sex and Gender Information Value Date Recorded Sex Assigned at Not on file Gender Identity Not on file Sexual Orientation Not on file documented as of this encounter Plan of Treatment Not on file documented as of this encounter Procedures Procedure Name Priority Date/Time Associated Diagnosis Comments CYTOPATHOLOGY Routine 06/22/2001 0:00 EST documented in this encounter Results * CYTOPATHOLOGY (06/22/2001 0:00 EST) Pathology Report: CYTOPATHOLOGY REPORT Reports generated via electronic interface contain original data; however they are lacking the format of the original report. Caution should be taken when reading/interpreti ng unformatted reports. Name: ? DAIGLENISHA Obed ? Accession #: ? [id number] : ? 1975 (Age: 25) ??F ?Collect Date: ? 06/22/2001 Location: ? [facility] ? Receive Date: ? 06/23/2001 Provider: ?DARIEL MELO MD Copy to: ? Specimen/Source: ?ThinPrep Pap Test, Cervix/Endocervix Last Menstrual Period: ? 06/13/01 Hormonal/Contracep tive Status: ? Yes ? SPECIMEN ADEQUACY ? Satisfactory for Evaluation - transformation zone component present GENERAL CATEGORIZATION ? Negative for Intraepithelial Lesion or Malignancy INTERPRETATION ? Shift in maynor present suggestive of bacterial vaginosis. ? Document reviewed and electronically signed by: ? CALIXTO Rodgers(ASCP) ? Report Date: ??06/29/2001 08:04 End of Report [facility] 06/22/2001 06/23/2001 Dariel Melo MD PATHOLOGY ORDERABLES [facility] [address] [place] [address] documented in this encounter Visit Diagnoses Not on filedocumented in this encounter
--- OUTSIDE RECORDS SUMMARY | 2024-03-09 06:03 | XMS_ITS | Encounter Summary ---
Author Organization [facility] Address [address] [place] [address] Care Team Providers Care Heavy Repairer Name Role Phone Rodrigo Corrales MD Primary Care Provider [phone] Encounter Details Date Type Department Care Team (Late st Contact Info) Description 03/03/2018 Results Only Imaging [facility] [phone] Unknown, Provider, Social History Tobacco Use Types [...] No 02/28/2018 documented as of this encounter Plan of Treatment Pending Results Name Type Priority Associated Diagnoses Date /Time OUTSIDE IMAGES - MR NEURO Imaging 03/03/2018 15:54 EDT documented as of this encounter Visit Diagnoses Not on filedocumented in this encounter Care Teams Heavy Repairer Relationship Specialty Start Date End Date Rodrigo Corrales MD [address] [place] [address] PCP - General 03/11/15 documented as of this encounter
--- OUTSIDE RECORDS SUMMARY | 2024-03-09 06:03 | XMS_ITS | Encounter Summary ---
Author Organization [facility] Address [address] [place] [address] Care Team Providers Care Stone Cleaner Name Role Phone Rodrigo Corrales MD Primary Care Provider [phone] Reason for Visit * Reason Comments Gait Problem * Consult (Routine) - Specialty Report Received Specialty Diagnoses / Procedures Referred By Cinthia steven Referred To Contact Diagnoses Spastic hemiplegic cerebral palsy (HCC-CMS) Paraparesis, bilateral (HCC-CMS) Nina Jin MD [address] [place] [phone] Nina Jin MD [address] [place] [phone] Referral ID Status Reason Start Date Expiration Date Visits Requested Visits Authorized [id number] Specialty Report Received Specialty Services Required 8 1 1 Encounter Details Date Type Department Care Team (Latest Contact Info) Description 07/19/2018 13:30 EDT Office Visit [facility] Rehabilitation Therapy - [address] [address] Nina Jin MD [address] [place] [phone] Spastic hemiplegic cerebral palsy (HCC-CMS) (Primary Dx); Paraparesis, bilateral (HCC-CMS) Discharge Disposition: Auto Discharge Social History Tobacco [...] 02/28/2018 documented as of this encounter Discharge Disposition Disposition Code Departure Means Destination Auto Discharge documented in this encounter Progress Notes * Nina Jin MD, MD - 07/19/2018 1330 EDT Images from the original note were not included. Subjective: Patient ID: Thanh Daigle is an 42 y.o. female. Chief Complaint Patient presents with ??? Gait Problem HPI Here at my recommendation for gait/brace eval with R spastic hemiparesis and declining gait. Met her 02/28/18. Has her R AFO with her. Ridgeside Step with custom foot bed with increased capture of heel and arch. Continues to struggle with mobility.. Feels she is tighter, stiffer. Neurology has completed brain and C spine MRIs. Lumbar spine ok. Is having falls: trips. Or if turns quick or has to stop suddenly. Fell several times this week which is pretty normal. Neuro offered baclofen but she has never tolerated that well and walks worse. Does not Want a muscle relaxant. Patient Active Problem List Diagnosis ??? Spastic hemiplegic cerebral palsy (HCC-CMS) ??? Paraparesis, bilateral (HCC-CMS) Past Medical History: Diagnosis Date ??? Cerebral palsy (HCC-CMS) ??? GERD (gastroesophageal reflux disease) No past surgical history on file. No family history on file. Social Social History Tobacco Use ??? Smoking status: Current Every Day Smoker Packs/day: 0.25 Years: 26.00 Pack years: 6.50 Types: Cigarettes ??? Smokeless tobacco: Never Used Substance Use Topics ??? Alcohol use: Not on file ??? Drug use: Not on file Current Outpatient Medications on File Prior to Visit Medication Sig Dispense Refill ??? OMEPRAZOLE ORAL Take 10 mg by mouth daily. No current facility-administered medications on file prior to visit. Allergies Allergen Reactions ??? Oxycontin [Oxycodone] Itching ??? Percocet [Oxycodone-Acetaminophen] Itching and Nausea Only ??? Other - See Comments Tide detergent; Needs to buy sensitive skin products. ROS - See HPI Objective: There were no vitals taken for this visit. Estimated body mass index is 32.77 kg/m?? as calculated from the following: Height as of 02/28/18: 160 cm (63). Weight as of 02/28/18: 83.9 kg (185 lb). Physical Exam Affect pleasant. Cooperative. Speech clear. No confusion noted. Respirations even, unlabored. No edema. ROM L DF 5 R DF -3 MMT LOWER QUARTER 07/19/2018 HIP: Left Right Flexion 4 5 Knee: Left Right Extension 5 4 Flexion 4 3+ Ankle: Left Right Dorsiflexion 4 3- Plantarflexion 1- 4 Inversion 4 1 Eversion 5 0 Gait and Station: Observation of gait cycle, balance, coordination, and alignment of trunk/extremities, functional ROM, tone, joint laxity for all extremities. Gait observed for each bracing option listed below. Abnormal/significant findings as below. Assistive device: none Assist: independently 1. Shoes: B add in swing R >L, R circumduction, R DF weakness in swing and lands more on forefoot and lateral edge then pronates and no push off, L with slight DF weakness in swing, milder inversion in swing. Minimal L push off. Tends to have some KF sink with rollover. 2. R Ridgeside step with custom insert (hers): Controls foot drop and inversion, pronation 3. R spry step and L Walk On: helps with toe clearance on L and HS. Rollover smoother. Able to comedown stairs , step over step with railing. Wasodd at first ,Took awhile but then felt OK. 4. R Ridgeside ( hers) and L Toe Off: Likes the knee support, Keeps her knee more extended thru stance. Slower with forward progression. More delay to toe clearance. 5. R Ridgeside (hers) and L Dynamic Walk (Avinash): She feels she has the smoothest mobility. Gets goodtoe clearance, ankle stable in swing. Has heel strike, Knee is stable thru stance. Feels better to have both braces on. Brace Style Brace Qualities Gait Assessment Toe OFF AFO (made by Mar, has 1 year warranty) Pre-fabricated brace made of carbon fiber and Kevlar. Has anterior shell, lateral strut and rocker bottom. Provides assistance for foot drop, roll over, push off and knee flexion instability. Will increase knee extension force which can increase knee extension moment in stance and limits ankle dorsiflexion which can inhibit transfers and stair negotiation. Walk On Flex AFO (Made by Espinoza) Pre-fabricated brace made of carbon fiber which has a posterior strut. Provides assistance for footdrop. More flexible than the Walk On Walk On AFO (made by Espinoza) Pre-fabricated brace made of carbon fiber which has a posterior strut. Provides assistance for footdrop and slight knee extension control. Somewhat flexible allowing dorsiflexion during gait, transfers and stair negotiation. Dynamic Walk AFO (made by Avinash) Pre-fabricated brace made of carbon fiber and is very lightweight. Provides dorsiflexion assist. Options for strut on both sides, medial, or lateral. We have lateral strut for demo Assessment: Thanh has been having declining gait with increased spasticity and gait deviations from her Spastic CP. She is having multiple falls weekly. After multiple trials with different left AFOs, have chosen a Dynamic Walk AFO by Avinash. This provides active DF in swing which helps with toe clearance in swing. Duration: permanent Medically indicated to provide safe ambulation in her home. Has been having frequent falls due to foot drop and spastic gait. Recommend f/u here in about one year to assess for any change in gait. Davion Silver PT [email or web address] Vendor: will work with [employer] in [place]. Plan: Thanh was seen today for gait problem. Diagnoses and all orders for this visit: Spastic hemiplegic cerebral palsy (HCC-CMS) - LOWER EXTREMITY ANKLE FOOT ORTHOSIS(AFO) Paraparesis, bilateral (HCC-CMS) - LOWER EXTREMITY ANKLE FOOT ORTHOSIS(AFO) No future appointments. One year 45 min TBS Portions of this document have been prepared with speech recognition software or keyboard file clerk data entry techniques. Minor irregularities or keyboarding misprints may be present. 60 minutes face-to face time with patient, 35 minutes in education/counseling on above issues. 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
--- OUTSIDE RECORDS SUMMARY | 2024-03-09 06:03 | XMS_ITS | Encounter Summary ---
Author Organization [facility] [place] [address] Care Team Providers Care Gravedigger Name Role Phone Rodrigo Corrales MD Primary Care Provider [phone] Reason for Visit * Reason Comments Rash Encounter Details Date Type Department Care Team (Late st Contact Info) Description 09/20/2011 3:15 PM EDT Office Visit Dermatology [address] [place] [address] [address] [place] [address] Gopal Mata MD [address], [place] [address] Spongiotic dermatitis (Primary Dx) Social History Tobacco Use Types Packs/Day Years Used Date Smoking Tobacco: Never Sex and Gender Information Value Date Recorded Sex Assigned at Not on file Gender Identity Not on file Sexual Orientation Not on file documented as of this encounter Progress Notes * Gopal Mata MD - 09/20/2011 3:55 PM EDT Problem: Pruritic dermatitis. Thanh is a 35-year-old woman who has a history of cerebral palsy and five months ago developed dry foot of the distal sole of her left foot. Apparently Dr. Neely had biopsied this and had given her betamethasone dipropionate cream to use for it, which does help. Two months ago she developed an itchy rash primarily on the elbows but also with a couple of patches of involvement on the upper back just below the nape of her neck. She has no hand involvement, knee, or other areas. The scalp is clear. She complains of her joints hurting, and she is not sleeping because it is so itchy all over. There is a family history of psoriasis in a cousin, but although she has sensitive skin has no history of eczema or other dermatitidis. There has been no change in her medications, her toiletries, emollients and soaps. She uses an Oil of Olay body wash. She lives at home with her son and daughter and boyfriend, none of whom have any itching or any rash. There has been a fair amount of stress recently. At one point, Devi gave her some triamcinolone cream to try, but this unfortunately did not really seem to help her. Physical examination reveals a pleasant 35-year-old who has spongiotic papules coalescing through large patches over either elbow and smaller areas on the upper back just below the nape of her neck. She has no involvement of the scalp. Her hair is highlighted, but she states that she has always had her hair dyed in this way without any untoward effects. She has psoriasiform hyperkeratosis of the distal sole of the left foot, not of the right, with some minor scaling and extension into the fourth-fifth toe webspace but not into the other toe web spaces and not over the dorsum of the feet. There is no pitting of the nails. There are no capillary nail changes. Assessment and Plan: Pruritic spongiotic dermatitis, rule out psoriasiform dermatitis. a. Today a single 4-mm punch biopsy was obtained from the right lateral elbow. b. Wound care instructions and supplies given. c. Encouraged her to begin using betamethasone dipropionate cream, which she has a large tube of from Dr. Neely, for the new rash on her elbows. d. Return to clinic in 10 to 14 days for suture removal and biopsy results. Will notify her of biopsy results at time of return visit. Copy: Dustin Tipton A.P.R.N. documented in this encounter Plan of Treatment Not on file documented as of this encounter Visit Diagnoses Diagnosis Spongiotic dermatitis- Primary Contact dermatitis and other eczema, due to unspecified cause documented in this encounter Care Teams Gravedigger Relationship Specialty Start Date End Date Rodrigo Corrales MD [address] [place] [id number] PCP - General 09/20/11 01/05/21 documented as of this encounter
--- OUTSIDE RECORDS SUMMARY | 2024-03-09 06:03 | XMS_ITS | Encounter Summary ---
Author Organization [facility] Address [address] [place] [address] Care Team Providers Care Gas Or Water Meter Installer Name Role Phone Rodrigo Corrales MD Primary Care Provider [phone] Reason for Visit * Reason Onset Date Comments Appointment Related 07/17/2018 Encounter Details Date Type Department Care Team (Late st Contact Info) Description 07/17/2018 Telephone [facility] Rehabilitation Therapy - [address] [id number] Therapy, Physical Appointment Related Social History Tobacco Use Types [...] encounter Miscellaneous Notes * Telephone Encounter - Najma Brambila - 07/17/[address] [facility]ERAPY - [address] [address] Telephone Intake Information for Scheduling NEW Patients for Therapy Script/referral (present in [facility], pt bringing, MD office faxing, etc.): Physician to sign and dateInitial Physical Therapy Note Referring Provider: Nina Jin MD Diagnosis: [facility] Filler Spreader needed? No Primary Insurance: Medicare Secondary Insurance: Medicaid If Medicare: Have you received a letter from Medicare about the therapy cap? No Have you been seen in therapy since May first of this year? No Are you receiving any home health or VNA services? No According the the Medicare Automated Line - patient has not used any PT or OT dollars and is not receiving home health Notes/other: Patient is scheduled to be seen at [facility] on Tuesday07/19/18 at 1:30pm - MD Rachel and Davion Silver PT. Left voicemail message with appt date, time and location. Left my personal line [phone] if there are any insurance changes, home health or if she has any Najma Brambila 07/18/2018 documented in this encounter Plan of Treatment Not on file documented as of this encounter Visit Diagnoses Not on filedocumented in this encounter Care Teams Gas Or Water Meter Installer Relationship Specialty Start Date End Date Rodrigo Corrales MD [address] [place] [address] PCP - General 03/11/15 documented as of this encounter
--- OUTSIDE RECORDS SUMMARY | 2024-03-09 06:03 | XMS_ITS | Encounter Summary ---
Author Organization [facility] Address [address] [place] [address] Care Team Providers Care Concrete Mixer Truck Driver Name Role Phone Unavailable Primary Care Provider Unavailabl e Encounter Details Date Type Department Care Team (Late st Contact Info) Description 03/12/2002 Results Only [facility] - Maple conversion [address] [place] [address] Dariel Melo MD [address] [place], [place] [id number] Social History Tobacco Use Types Packs/Day Years Used Date Smoking Tobacco: Never Assessed Sex and Gender Information Value Date Recorded Sex Assigned at Not on file Gender Identity Not on file Sexual Orientation Not on file documented as of this encounter Plan of Treatment Not on file documented as of this encounter Procedures Procedure Name Priority Date/Time Associated Diagnosis Comments SURGICAL PATHOLOGY Routine 03/12/2002 0:00 EST documented in this encounter Results * SURGICAL PATHOLOGY (03/12/2002 0:00 EST) Pathology Report: SURGICAL PATHOLOGY REPORT Reports generated via electronic interface contain original data; however they are lacking the format of the original report. Caution should be taken when reading/interpreti ng unformatted reports. Name: ? RANJAN DAIGLEANGIObed Clay ? Accession #: ? [id number] ? : ? 1975 (Age: 26) ??F ? Collect Date: ? 03/12/2002 ? Location: ? [facility] ? Receive Date: ? 03/12/2002 ? Provider: DARIEL MELO MD Copy to: JUAN MARSHALL MD ? Final Pathologic Diagnosis: ? Ovary and fallopian tube, right, salpingo-oophorect oumar: 1. ?Right ovary: ? - Focal old hemorrhage and cauterized material with surrounding giant cell reaction and focal ??calcification, negative for endometriosis. - Hemorrhagic corpus luteum (1.0 cm). - Multiple cystic follicles (ranging 0.2 to 0.8 cm). - Multiple paraovarian fibrous adhesions. 2. ?Right fallopian tube: ? - Multiple fibrous adhesions; otherwise no pathologic features. Document reviewed and electronically signed by: Kiran Oliva MD Report ??Date: 03/14/2002 19:35 By the signature above, the attending physician certifies that he/she has personally conducted a gross and/or microscopic examination of the described specimens and rendered or confirmed the above diagnosis. Specimen(s) Received: ? Right ovary and tube Clinical History: ? Right ovarian mass; hx endometriosis ??extensive adhesions Gross Description: ? Received in formalin labelled Daigle and #1 right ovary and tube is an ovary with attached fallopian tube and a separately received section of hemorrhage semi-soft friable material. ??The specimen weighs 27.7 grams. ??The ovary measures 6.0 x 3.5 x 2.5 cm. ??It has a diffusely cystic appearance and an irregular area of hemorrhage that measures 1.0 cm in its largest dimension, approximately 3.0 cm from the fimbriae of the fallopian tube. ??There is a smaller section of hemorrhage on the upper anterior aspect of the ovary that measures 0.2 cm, and a similar focus of hemorrhage on the fallopian tube, approximately 0.5 cm from the fimbriae. ??Sectioning of the ovary reveals multiple hemorrhagic and serous cysts with a maximum diameter of 1.0 cm. ??In addition, there is a fibrous nodule that measures 1.5 cm in maximum dimension. ??Five open claims representative sections of the ovary are submitted as (A1) through (A5), and three open claims representative sections of the fallopian tube are submitted as (A6). ??(Dr. Aguilar-KALINA)/rikki End of Report CHANNING GRIJALVA 03/12/2002 03/12/2002 15: 24 EST Dariel Melo MD PATHOLOGY ORDERABLES CHANNING GRIJALVA [address] [place] [address] documented in this encounter Visit Diagnoses Not on filedocumented in this encounter
--- OUTSIDE RECORDS SUMMARY | 2024-03-09 06:03 | XMS_ITS | Encounter Summary ---
[facility] [place] [address] Care Team Providers Care Wallcovering Texturer Name Role Phone Rodrigo Corrales MD Primary Care Provider [phone] Encounter Details Date Type Department Care Team (Late st Contact Info) Description 09/20/2011 6:51 PM EDT - 09/20/2011 11:59 PM EDT Hospital [place] [address] Gopal Garvey MD [address] [place] [address], [place] [address] Discharge Disposition: Home Social History Tobacco Use Types Packs/Day Years Used Date Smoking Tobacco: Never Sex and Gender Information Value Date Recorded Sex Assigned at Not on file Gender Identity Not on file Sexual Orientation Not on file documented as of this encounter Medications at Time of Discharge Medication Sig Dispensed Refills Start Date End Date hydroCODone-acetaminophen (VICODIN) 5-500 mg per tablet Take 1 tablet by mouth every 8 hours as needed. omeprazole (PRILOSEC) 20 mg capsule Take 20 mg by mouth daily. sertraline (ZOLOFT) 100 mg tablet Take 100 mg by mouth daily. traZODone (DESYREL) 50 mg tablet Take 50 mg by mouth nightly. documented as of this encounter Plan of Treatment Not on file documented as of this encounter Procedures Procedure Name Priority Date/Time Associated Diagnosis Comments SURGICAL PATHOLOGY REPORT Routine 09/20/2011 7:08 PM EDT documented in this encounter Results * SURGICAL PATHOLOGY REPORT (09/20/2011 7:08 PM EDT) Surgical Pathology Report ? [facility] ? Provider: ?? GPOAL GARVEY ?? Pt. Name: ?? NISHA DAIGLE ? Acc #: ?[id number] ? Pt. ? Col Date: ?? 09/20/2011 ? /Sex: ?1975,(35 years),Female ? Rec Date: ?? 09/22/2011 ? LOC: ?[facility] ? SURGICAL PATHOLOGY ? ---Pathologic Diagnosis--- ? Skin, right elbow, punch biopsy: ?Spongioticdermatiti s with eosinophils, (see Comment). ? CR-0 ? 09/23/11 ? AJE ? 09/24/11 Verified by: ? Sha Rader MD ? Dermatopathologist ? (Electronic Signature) ? The attending pathologist whose signature appears on this report has ? reviewed all diagnostic slides and has edited the gross and/or ? microscopic portion of the report in rendering the final pathologic ? diagnosis. ? ---Comment--- ? These changes may be seen in nummular dermatitis, allergic contact ? dermatitis, id reactions and in patients who clinically appear to have ? atopic dermatitis. ??No fungi are seen in PAS-reacted sections. ??Multiple ? deeper levels have been examined. ? ---Microscopic Description--- ? Slides reviewed, microscopic description not recorded. ? Special stains are performed. ?Block Stain Result ( Positive / Negative ) ?A1 ??PAS/f Negative for hyphae ? ---Gross Description--- ? Labeled/Fixative: ? Labeled with the patient's name and medical ? record number, right elbow; formalin. ? Qty/Size/Weight: ?Single punch, 0.4 cm, with a pale rg-caballero skin ? surface. ? Sections/Processing: ??Bisected. ??(T1) ??aje/PPS ? ---Clinical Information--- ? Specimen Submitted: ? A - (R) elbow, 4 mm punch ? Clinical History/Diagnosis: ? [facility] ? Provider: ?? GOPAL GARVEY ?? Pt. Name: ?? NISHA DAIGLE ? Acc #: ?[id number] ? Pt. ? Col Date: ?? 09/20/2011 ? /Sex: ?1975,(35 years),Female ? Rec Date: ?? 09/22/2011 ? LOC: ?[facility] ? SURGICAL PATHOLOGY ? 2-month HX of pruritic papular dermatitis of elbows, below nape of neck; ? symptomatic dermatitis ? Report to: ? Gopal Garvey MD, III ? Dermatology ? [address], [address] ? [place], [place] ??[address] [facility] 09/20/2011 7:08 PM EDT Gopal Garvey MD PATHOLOGY/CYTOLOGY O RDERABLES [facility] documented in this encounter Visit Diagnoses Not on filedocumented in this encounter Care Teams Wallcovering Texturer Relationship Specialty Start Date End Date Rodrigo Corrales MD [address] [place] [address] PCP - General 09/20/11 01/05/21 documented as of this encounter
--- OUTSIDE RECORDS SUMMARY | 2024-03-09 06:03 | XMS_ITS | Encounter Summary ---
Author Organization [facility] Address [address] [place] [address] Care Team Providers Care Spragger Name Role Phone Unavailable Primary Care Provider Unavailabl e Encounter Details Date Type Department Care Team (Late st Contact Info) Description 06/29/2002 Results Only [facility] - Maple conversion [address] [place] [address] Dariel Melo MD [address] [place], [place] [id number] Social History Tobacco Use Types Packs/Day Years Used Date Smoking Tobacco: Never Assessed Sex and Gender Information Value Date Recorded Sex Assigned at Not on file Gender Identity Not on file Sexual Orientation Not on file documented as of this encounter Plan of Treatment Not on file documented as of this encounter Procedures Procedure Name Priority Date/Time Associated Diagnosis Comments CYTOPATHOLOGY Routine 06/29/2002 0:00 EST documented in this encounter Results * CYTOPATHOLOGY (06/29/2002 0:00 EST) Pathology Report: CYTOPATHOLOGY REPORT Reports generated via electronic interface contain original data; however they are lacking the format of the original report. Caution should be taken when reading/interpreti ng unformatted reports. Name: ? DAIGLENISHA Obed ? Accession #: ? [id number] : ? 1975 (Age: 26) ??F ?Collect Date: ? 06/29/2002 Location: ? [facility] ? Receive Date: ? 07/03/2002 Provider: ?DARIEL MELO MD Copy to: ? Specimen/Source: ?ThinPrep Pap Test, Cervix/Endocervix Last Menstrual Period: ? 06/21/02 ? SPECIMEN ADEQUACY ? Satisfactory for Evaluation - transformation zone component present GENERAL CATEGORIZATION ? Negative for Intraepithelial Lesion or Malignancy ? Document reviewed and electronically signed by: ? CALIXTO Oleary(ASCP) ? Report Date: ??07/04/2002 10:29 End of Report CHANNING GRIJALVA 06/29/2002 07/03/2002 Dariel Melo MD PATHOLOGY ORDERABLES CHANNING GRIJALVA [address] [place] [address] documented in this encounter Visit Diagnoses Not on filedocumented in this encounter
--- OUTSIDE RECORDS SUMMARY | 2024-03-09 06:03 | XMS_ITS | Encounter Summary ---
[facility] [place] [address] Care Team Providers Care Painter Name Role Phone Rodrigo Corrales MD Primary Care Provider [phone] Encounter Details Date Type Department Care Team (Latest Contact Info) Description 05/29/2013 1:21 PM EST - 05/29/2013 11:59 PM EST Hospital Encounter Non-[place] [address] CARDIO, ECHO SIXTY MIN APPT None SOB (shortness of breath); Lightheadedness Discharge Disposition: Home Social History Tobacco Use [...] Procedure Name Priority Date/Time Associated Diagnosis Comments ECHOCARDIOGRAM TRANSTHORACIC Routine 05/29/2013 3:32 PM EST SOB (shortness of breath) Lightheadedness documented in this encounter Results * Echocardiogram Transthoracic(Leb) (05/29/2013 3:32 PM EST) EF 60 HEARTKwarter SYSTEM Anatomical Region Laterality Modality Other 05/29/2013 Narrative 05/29/2013 3:50 PM EST Procedure: ? Transthoracic Echocardiogram Patient: ? CORNELL Clay ?(Age): 1975(37) Med Rec#: ?[id number] ? Sex: ?F ? Site Loc: ?[facility] ? Ht / Wt: ??160.02(cm)/73(k Pt. Loc: ? Echo Lab ? BSA: ?1.8 Study Date: ?05/29/2013 ? Pt. Type: Outpatient Tape: ? Referring: [facility] Electro Optics Engineer: Licha Lara Diagnosis:CPT Code(s): ??Echo Full (92502), ??Spectral Doppler (68204), Color Doppler (22533), Indication(s): ??Shortness of breath Rhythm: Sinus HR ?BP ?147/71 ?? SUMMARY: 1. Left ventricular chamber size, wall thickness, global and segmental systolic function are within normal limits. Ejection fraction is estimated to be 60%. 2. Doppler assessment is consistent with normal left sided filling pressure. 3. Right ventricular chamber size, wall thickness, and systolic function are within normal limits. 4. See remainder of report for additional findings. FINDINGS: Left Ventricle ?Left ventricular chamber size, wall thickness, global and segmental systolic function are within normal limits. Ejection fraction is estimated to be 60%. ?There are no left ventricular segmental wall motion abnormalities. ?Doppler assessment is consistent with normal left sided filling pressure. Left Atrium ?The left atrium is normal in size. Right Ventricle ?Right ventricular chamber size, wall thickness, and systolic function are within normal limits. Right Atrium ?The right atrium is normal in size. Aortic Valve ?The aortic valve is trileaflet. The leaflets are thin with normal excursion. There is no aortic stenosis or regurgitation present. Mitral Valve ?The mitral valve appears normal in structure and function. Tricuspid Valve ?The tricuspid valve appears normal in structure and function. Pulmonic Valve ?The pulmonic valve appears normal in structure and function. ?There is trace pulmonic regurgitation present. Pericardium ?The pericardium appears normal and there is no evidence of a pericardial effusion. Aorta ?The aortic root is normal in size. ?The ascending aorta is normal in size. ?The left main coronary artery is visualized and originates normally from the aorta. ?The right coronary artery is visualized and originates normally from the aorta. Pulmonary Artery ?The main pulmonary artery appears normal. Venous ?The inferior vena cava appears normal in size. ?There is a greater than 50% respiratory change in the inferior vena cava dimension. Misc ?Two-dimensional echo, spectral Doppler and color Doppler performed. Wall Motion: Segment Name ?Rest ? Base-Anteroseptal ?? Normal ? Base-Anterior ? Normal ? Base-Anterolateral ??Normal ? Base-Posterolateral Normal ? Base-Inferior ? Normal ? Base-Inferoseptal ?? Normal ? Mid-Anteroseptal ?Normal ? Mid-Anterior ?Normal ? Mid-Anterolateral ?? Normal ? Mid-Posterolateral ??Normal ? Mid-Inferior ?Normal ? Mid-Inferoseptal ?Normal ? [place]-Septal ? Normal ? [place]-Anterior ? Normal ? [place]-Lateral ?Normal ? [place]-Inferior ? Normal ? [place]-Tip ?Normal ? Chambers ?Value ?Units (Range) ? LV EF Est ? 60 ? % (55 to 80) ? IVSd 2D ? 0.9 ?cm ? LVIDd 2D ?3.8 ?cm ? PWd 2D ?0.9 ?cm ? LVIDs 2D ?2.9 ?cm ? LVFS 2D ? 24 ? % ? LA area ? 12.5 ? cm2 (<21) ? RA area ? 14 ? cm2 (<18) ? Ao root ? 2.6 ?cm (2.1 to 3.6) ? Asc Ao ?2.4 ?cm (2 to 3.5) ? Mitral Valve ?Value ?Units (Range) ? E peak ?0.82 ? m/sec ? E/A ratio ? 1.4 ?ratio ? E1 ?0.1 ?m/sec ? E/E1 ?8.2 ?ratio ? Tricuspid/Pulmonic Valves ?Value ?Units (Range) ? RAP ? 3 ?mmHg ? This report has been electronically signed by: Julian Greenwood MD ? 05/29/2013 15:49:54 Images reviewed and interpretation verified [facility] Cardiac Ultrasound Laboratory Procedure Note Julian Greenwood MD - 05/29/2013 Procedure: Transthoracic Echocardiogram Patient: CORNELL SYKES(Age): 1975(37) Med Rec#: [id number] Sex: F Site Loc: [facility] Ht / Wt: 160.02(cm)/73(k Pt. Loc: Echo Lab BSA: 1.8 Study Date: 05/29/2013 Pt. Type: Outpatient Tape: [facility] Electro Optics Engineer: Licha Lara Diagnosis:CPT Code(s): Echo Full (64503), Spectral Doppler (16777), Color Doppler (12613), Indication(s): Shortness of breath Rhythm: Sinus HR BP 147/71 SUMMARY: 1. Left ventricular chamber size, wall thickness, global and segmental systolic function are within normal limits. Ejection fraction is estimated to be 60%. 2. Doppler assessment is consistent with normal left sided filling pressure. 3. Right ventricular chamber size, wall thickness, and systolic function are within normal limits. 4. See remainder of report for additional findings. FINDINGS: Left Ventricle Left ventricular chamber size, wall thickness, global and segmental systolic function are within normal limits. Ejection fraction is estimated to be 60%. There are no left ventricular segmental wall motion abnormalities. Doppler assessment is consistent with normal left sided filling pressure. Left Atrium The left atrium is normal in size. Right Ventricle Right ventricular chamber size, wall thickness, and systolic function are within normal limits. Right Atrium The right atrium is normal in size. Aortic Valve The aortic valve is trileaflet. The leaflets are thin with normal excursion. There is no aortic stenosis or regurgitation present. Mitral Valve The mitral valve appears normal in structure and function. Tricuspid Valve The tricuspid valve appears normal in structure and function. Pulmonic Valve The pulmonic valve appears normal in structure and function. There is trace pulmonic regurgitation present. Pericardium The pericardium appears normal and there is no evidence of a pericardial effusion. Aorta The aortic root is normal in size. The ascending aorta is normal in size. The left main coronary artery is visualized and originates normally from the aorta. The right coronary artery is visualized and originates normally from the aorta. Pulmonary Artery The main pulmonary artery appears normal. Venous The inferior vena cava appears normal in size. There is a greater than 50% respiratory change in the inferior vena cava dimension. [facility], spectral Doppler and color Doppler performed. Wall Motion: Segment Name Rest Base-Anteroseptal Normal Base-Anterior Normal Base-Anterolateral Normal Base-Posterolateral Normal Base-Inferior Normal Base-Inferoseptal Normal Mid-Anteroseptal Normal Mid-Anterior Normal Mid-Anterolateral Normal Mid-Posterolateral Normal Mid-Inferior Normal Mid-Inferoseptal Normal [place]-Septal Normal [place]-Anterior Normal [place]-Lateral Normal [place]-Inferior Normal [place]-Tip Normal Chambers Value Units (Range) LV EF Est 60 % (55 to 80) IVSd 2D 0.9 cm LVIDd 2D 3.8 cm PWd 2D 0.9 cm LVIDs 2D 2.9 cm LVFS 2D 24 % LA area 12.5 cm2 (<21) RA area 14 cm2 (<18) Ao root 2.6 cm (2.1 to 3.6) Asc Ao 2.4 cm (2 to 3.5) Mitral Valve Value Units (Range) E peak 0.82 m/sec E/A ratio 1.4 ratio E1 0.1 m/sec E/E1 8.2 ratio Tricuspid/Pulmonic Valves Value Units (Range) RAP 3 mmHg This report has been electronically signed by: Julian Greenwood MD 05/29/2013 15:49:54 Images reviewed and interpretation verified [facility]iac Ul[facility]ound [facility] Devi Morales APRN ECHO ORDERABLES documented in this encounter Visit Diagnoses Diagnosis SOB (shortness of breath) Shortness of breath Lightheadedness Dizziness and giddiness documented in this encounter Care Teams Painter Relationship Specialty Start Date End Date Rodrigo Corrales MD [address] [place] [address] PCP - General 09/20/11 01/05/21 documented as of this encounter
--- OUTSIDE RECORDS SUMMARY | 2024-03-09 06:03 | XMS_ITS | Clinical Summary ---
Author Organization [facility] Address [facility] [place] [address] Care Team Providers Care Desk Assistant Name Role Phone Estrella Wilson MD Primary Care Provider [phone] Allergies Active Allergy Reactions Criticality Noted Date Comments Cyclobenzaprine 09/20/2011 Ketoprofen 09/20/2011 Oxycodone 09/20/2011 Oxycodone-Acetaminophen 09/20/2011 Medications Medication Sig Dispensed Refills Start Date End Date Status hydroCODone-acetaminop hen (VICODIN) 5-500 mg per tablet Take 1 tablet by mouth every 8 hours as needed. Active omeprazole (PRILOSEC) 20 mg capsule Take 20 mg by mouth daily. Active sertraline (ZOLOFT) 100 mg tablet Take 100 mg by mouth daily. Active traZODone (DESYREL) 50 mg tablet Take 50 mg by mouth nightly. 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 Social History Tobacco Use Types Packs/Day Years Used Date Smoking Tobacco: Never Sex and Gender Information Value Date Recorded Sex Assigned at Not on file Gender Identity Not on file Sexual Orientation Not on file Plan of Treatment Health Maintenance Due Date Last Done Comments CT Colonography 1975 Colonoscopy 1975 Colorectal Cancer Screening 1975 FIT DNA 1975 FIT 1975 Sigmoidoscopy (10 year) with FIT yearly 1974 Sigmoidoscopy 1975 HIV screen 1992 Hepatitis C Screening 1992 Hepatitis B vaccine (0-59 yrs) (1) 1993 Tetanus/Diphtheria/Pertussis Vaccines (1 - Tdap) 12/05 HPV test 2004 PAP Smear 2004 Breast Cancer Share Decision Needed 2014 Breast Cancer screening 2014 Covid-19 Vaccine ( season) 2024 Influenza (Flu) vaccine (1 o f 1 - Influenza standard series) 01/01/2024 Care Teams Desk Assistant Relationship Specialty Start Date End Date Estrella Wilson MD [address] [place] [address] PCP - General Family Medicine 01/06/21
--- OUTSIDE RECORDS SUMMARY | 2024-03-09 06:03 | XMS_ITS | Encounter Summary ---
Author Organization [facility] Address [address] [place] [address] Care Team Providers Care Tourist Camp Attendant Name Role Phone Unavailable Primary Care Provider Unavailabl e Encounter Details Date Type Department Care Team (Late st Contact Info) Description 07/24/2001 Results Only [facility] - [facility] [address] [place] [address] Dariel Melo MD [address] [place], [place] [id number] Social History Tobacco Use Types Packs/Day Years Used Date Smoking Tobacco: Never Assessed Sex and Gender Information Value Date Recorded Sex Assigned at Not on file Gender Identity Not on file Sexual Orientation Not on file documented as of this encounter Plan of Treatment Not on file documented as of this encounter Procedures Procedure Name Priority Date/Time Associated Diagnosis Comments SURGICAL PATHOLOGY Routine 07/24/2001 0:00 EST documented in this encounter Results * SURGICAL PATHOLOGY (07/24/2001 0:00 EST) Pathology Report: SURGICAL PATHOLOGY REPORT Reports generated via electronic interface contain original data; however they are lacking the format of the original report. Caution should be taken when reading/interpreti ng unformatted reports. Name: ? RANJAN DAIGLEANGIObed Clay ? Accession #: ? [id number] ? : ? 1975 (Age: 25) ??F ? Collect Date: ? 07/24/2001 ? Location: ? [facility] ? Receive Date: ? 07/25/2001 ? Provider: DARIEL MELO MD Copy to: JUAN STAUFFER MD ? Final Pathologic Diagnosis: A. ?Endometrium, curettage: 1. ?Fragments of weakly proliferative and early secretory-type endometrium, circa day 18. 2. ?Focal stromal breakdown. B. ?Peritoneal cavity, left uterosacral ligament, excision biopsy: 1. ?Partially mesothelial-lined benign fibrovascular tissue with mild chronic inflammation. 2. ?Focal stromal proliferation with hemosiderin, suggestive of endometriosis. ??See comment. C. ?Peritoneal cavity, region of right pelvic side wall, excision biopsy: 1. ?Partially mesothelial-lined benign fibrovascular tissue with focal, mild chronic inflammation. ? 2. ?? Focal stromal proliferation with hemosiderin, suggestive of endometriosis. ??See comment. Comment: ? Multiple deeper sections of the peritoneal biopsies have been examined, associated cautery change somewhat limits the histologic assessment. ??(Dr. Lora)/[facility] Document reviewed and electronically signed by: JONATHAN LORA MD Report ??Date: 07/26/2001 17:00 By the signature above, the attending physician certifies that he/she has personally conducted a gross and/or microscopic examination of the described specimens and rendered or confirmed the above diagnosis. Specimen(s) Received: A. ?Endometrial curettings (#1) B. ?Left uterosacral ligament (#2) C. ?Right pelvic sidewall (#3) Clinical History: ? Pelvic pain Gross Description: ? Received in formalin labelled Daigle and endometrial curettings is 1.0 cc of red-brown tissue fragments admixed with blood tinged mucous. ??The specimen is submitted entirely as (A). Received in formalin labelled Daigle and #2 Lt uterosacral ligament is a portion of firm pink-white membranous tissue measuring 1.2 x 0.4 x 0.2 cm. ??The specimen is trisected and submitted entirely as (B). Received in formalin labelled Daigle and #3 right pelvic sidewall is a 5.0 x 1.4 x 0.5 cm portion of pink-john and focally hemorrhagic fibromembranous tissue. ??One surface is smooth and glistening, and the opposite surface shows extensive cautery artifact. ??The specimen is sectioned and authorization representative sections are submitted as (C). ??(KRISSY Holbrook)/rikki End of Report [facility] 07/24/2001 07/25/2001 9:5 7 EST Dariel Melo MD PATHOLOGY ORDERABLES [facility] [address] [place] [address] documented in this encounter Visit Diagnoses Not on filedocumented in this encounter
--- OUTSIDE RECORDS SUMMARY | 2024-03-09 06:03 | XMS_ITS | Encounter Summary ---
Author Organization [facility] Address [address] [place] [address] Care Team Providers Care Geographic Information Systems Manager Name Role Phone Unavailable Primary Care Provider Unavailabl e Encounter Details Date Type Department Care Team (Late st Contact Info) Description 06/24/2003 Results Only [facility] - [facility] conversion [address] [place] [address] Dariel Melo MD [address] [place], [place] [id number] Social History Tobacco Use Types Packs/Day Years Used Date Smoking Tobacco: Never Assessed Sex and Gender Information Value Date Recorded Sex Assigned at Not on file Gender Identity Not on file Sexual Orientation Not on file documented as of this encounter Plan of Treatment Not on file documented as of this encounter Procedures Procedure Name Priority Date/Time Associated Diagnosis Comments SURGICAL PATHOLOGY Routine 06/24/2003 0:00 EST documented in this encounter Results * SURGICAL PATHOLOGY (06/24/2003 0:00 EST) Pathology Report: SURGICAL PATHOLOGY REPORT Reports generated via electronic interface contain original data; however they are lacking the format of the original report. Caution should be taken when reading/interpreti ng unformatted reports. Name: ? RANJAN DAIGLEANGIObed Clay ? Accession #: ? [id number] ? : ? 1975 (Age: 27) ??F ? Collect Date: ? 06/24/2003 ? Location: ? [facility] ? Receive Date: ? 06/25/2003 ? Provider: DARIEL MELO MD Copy to: JUAN STAUFFER MD ? Final Pathologic Diagnosis: A. ?Uterus, anterior, biopsy: 1. ?Fibroadipose tissue with foreign body granuloma and hemosiderin deposition. B. ?Uterus, fallopian tube, left, and ovary, left, hysterectomy and unilateral salpingo-oophorect oumar: 1. ?Uterus: ? - Endometrium: ??- Inactive consistent with exogenous hormone effect. - Myometrium: ??- No pathologic features. - Cervix: ??- Chronic cervicitis, mild. 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 ? - Fibrinous adhesions, focal. 2. ?Ovary, left: ? - Follicular cysts (1.5 cm in maximal diameter). 3. ?Fallopian tube, left: ? - Fibrous tubo-ovarian adhesions. - Changes consistent with prior surgical ligation. Document reviewed and electronically signed by: BRIGID LEDBETTER MD Report ??Date: 06/27/2003 17:09 By the signature above, the attending physician certifies that he/she has personally conducted a gross and/or microscopic examination of the described specimens and rendered or confirmed the above diagnosis. Specimen(s) Received: A. ?Anterior uterine biopsy (#1) B. ?Uterus, Lt tube + ovary (#2) Clinical History: ? Pelvic pain, dyspareunia, dysmenorrhea Gross Description: ? Received in formalin labeled [place] and #1 anterior uterine biopsy is a 0.7 x 0.5 x 0.3 cm caballero-rg fragment of soft tissue. ??The specimen is bisected and submitted entirely as (A). Received in formalin labeled Daigle and uterus, Lt tube and ovary is a corpus uteri and cervix received closed with an attached left fallopian tube and ovary. The uterus measures 9.0 cm from fundus to cervix, 5.0 cm from cornu to cornu, and 4.0 cm from anterior to posterior. ??The left fallopian tube has been previously ligated and measures proximally 2.5 cm in length and 0.3 cm in diameter. ??The distal portion of fallopian tube measures 2.5 cm in length and 0.4 cm in diameter. ??The serosa of the uterus is rg-pink and smooth. The uterus is bivalved into anterior and posterior halves revealing rg-pink, focally hemorrhagic, velvety endometrium, which is 0.2 cm in average thickness. ??Serial sectioning reveals a rg-pink, homogeneous, finely trabeculated 2.0 cm thick myometrium. ??The cervix is rg-pink, smooth, and unremarkable. ??The cervical os measures 0.7 cm in diameter. ??Serial sectioning of the ovary reveals multiple brown-red watery fluid-filled cysts, which are 1.5 cm in maximal diameter. Automatic Presser sections are submitted as follows: BLOCK DIOR B1 ?Anterior endomyometrium B2 ?Anterior lower uterine segment B3 ?Anterior cervix and endocervix B4 ?Anterior serosa B5 ?Posterior endomyometrium B6 ?Posterior lower uterine segment B7 ?Posterior cervix and endocervix B8 ?Posterior serosa B9 ? Two claims customer service representative sections of left fallopian tube and one claims customer service representative section of ovary B10 ?One claims customer service representative section of ovary (Dr. Diamond)/kakatrina ?? End of Report [facility] 06/24/2003 06/25/2003 15: 15 EST Dariel Melo MD PATHOLOGY ORDERABLES Performing Organization Address City/State/[facility] Co de Phone Number [facility] [address] [place] [address] documented in this encounter Visit Diagnoses Not on filedocumented in this encounter
--- OUTSIDE RECORDS SUMMARY | 2024-03-09 06:03 | XMS_ITS | Referral Summary ---
Author Organization [facility] Address [address] [place] [address] Care Team Providers Care Internship Coordinator Name Role Phone Rodrigo Corrales MD Primary Care Provider [phone] Allergies Active Allergy Reactions Criticality Noted Date Comments Other - See Comments 02/28/2018 Tide detergent; Needs to buy sensitive skin products. Oxycodone Itching High 02/28/2018 Oxycodone-Acetaminophe n Itching,Nausea Only High 02/28/2018 Medications Medication Sig Dispensed Refills Start Date End Date Status OMEPRAZOLE ORAL Take 10 mg by mouth daily. 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 Social History Tobacco Use Types Packs/Day Years Used Date Smoking Tobacco: Every Day Cigarettes 0.3 26 Smokeless Tobacco: Never Interpersonal Safety Answer Date Record ed Physically Hurt Never 12/04/2019 Verbally Threaten Not on file 12/04/2019 Sex and Gender Information Value Date Recorded Sex Assigned at Not on file Gender Identity Not on file Sexual Orientation Not on file Last Filed Vital Signs Vital Sign Reading Time Taken Comments Blood Pressure - - Pulse - - Temperature - - Respiratory Rate - - Oxygen Saturation - - Inhaled Oxygen Concentration - - Weight 83.9 kg (185 lb) 02/28/2018 1304 EDT Pt r eported Height 160 cm (5' 3) 02/28/2018 1304 EDT Pt rep orted Body Mass Index 32.77 02/28/2018 1304 EDT Functional Status Functional Status Response Date of [...] concentrating, remembering, or making decisions? No 02/28/2018 Plan of Treatment Not on file Care Teams Internship Coordinator Relationship Specialty Start Date End Date Rodrigo Corrales MD [address] [place] [address] PCP - General 03/11/15
--- OUTSIDE RECORDS SUMMARY | 2024-03-09 06:03 | XMS_ITS | Encounter Summary ---
Author Organization [facility] Address [address] [place] [address] Care Team Providers Care Watermaster Name Role Phone Rodrigo Corrales MD Primary Care Provider [phone] Encounter Details Date Type Department Care Team (Late st Contact Info) Description 03/17/2018 Results Only Imaging [facility] [phone] Unknown, Provider, Social History Tobacco Use Types [...] /Time OUTSIDE IMAGES - MR NEURO Imaging 03/17/2018 9:33 EST documented as of this encounter Visit Diagnoses Not on filedocumented in this encounter Care Teams Watermaster Relationship Specialty Start Date End Date Rodrigo Corrales MD [address] [place] [address] PCP - General 03/11/15 documented as of this encounter
[2024-03-09 06:05] VITALS: BP 145/84; PULSE 72; RESP 16; TEMP 36.2; O2SAT 95
[2024-03-09] MEDS: Tropicam./Phenyleph. (1/2.5%) 5 ML BTL OS ×3 (06:20→06:30)
--- NOTE | 2024-03-09 07:15 | ANES.PREOP_ITS ---
General Info Date of Service Date Performed: 03/09/24 Height: 5 ft 4 in Weight: 90.4 kg Body Mass Index (BMI): 34.2 Surgical Procedure: Operation Date: 03/09/24 07:40 Proposed Procedure Side Surgeon p Cataract Extraction with IOL Implant Left Yfn Pena MD Meds Allergies and Home Medications Allergies Allergy/AdvReac Type Severity Reaction Status Date / Time cyclobenzaprine HCl (From Allergy Mild numbs her Verified 03/09/24 06:21 Flexeril) legs ketoprofen Allergy Mild Skin Rash Verified 03/09/24 06:21 acetaminophen (From Percocet) Allergy Itching Verified 03/09/24 06:21 oxycodone HCl (From AdvReac Intermediate Agitation Verified 03/09/24 06:21 OxyContin) TIDE Allergy Unknown Hives Uncoded 03/09/24 06:21 FABRIC SOFTNER Allergy Hives Uncoded 03/09/24 06:21 ORUVAL Allergy Nausea Uncoded 03/09/24 06:21 Home Medication ?Medication ?Instructions ?Recorded aluminum-mag hydroxide-simethicone 10 ml PO PRN 04/26/13 400 mg-400 mg-40 mg/5 mL oral susp (Maalox Maximum Strength) albuterol sulfate 90 mcg/actuation 2 puff inhalation Q6H PRN 05/28/21 aerosol inhaler (ProAir HFA) diclofenac sodium 1 % topical gel 4 g topical QID PRN Right knee 06/10/21 (Voltaren Arthritis Pain) pain #100 grams Current Visit Medications: Current Medications Generic Name Dose Route Start Last Admin Trade Name Freq PRN Reason Stop Dose Admin Balanced Salt Solution 500 ml 03/09/24 06:00 Balanced Salt Soln.-Plus 500 Ml Bag OP 04/08/24 05:59 DIRECTED LITO Miscellaneous Medication 0 ml 03/09/24 06:00 Prednisolone 1%, Moxifloxacin 0.5%, Bromfenac 0.09% 5.6ml Btl OS 04/08/24 05:59 DIRECTED LITO Miscellaneous Medication 0 ml 03/09/24 06:00 03/09/24 06:30 Tropicam./Phenyleph. (1/2.5%) 5 Ml Btl OS 04/08/24 05:59 1 drp DIRECTED LITO Administration Tetracaine HCl 0 ml 03/09/24 06:00 Tetracaine 0.5% 4 Ml Btl OS 04/08/24 05:[address] [facility] Active Problems Active Problems: Problem Status Onset Code Nuclear age-related cataract, left eye Acute H25.12 Posterior subcapsular age-related cataract of left eye Acute H25.042 Nuclear age-related cataract, right eye Acute H25.11 Posterior subcapsular age-related cataract, right eye Acute H25.041 Achilles tendinosis of right lower extremity Acute M67.88 Corns and callosities Acute L84 Knee osteoarthritis Acute M17.10 Spastic hemiplegia affecting right dominant side Acute G81.11 Degenerative joint disease of right knee Chronic M17.11 Babinski reflex Acute R29.2 Left-sided weakness Acute R53.1 Tobacco use Acute Z72.0 Obesity Chronic E66.9 Depression Chronic F32.9 Cerebral palsy Chronic G80.9 Asthma Chronic J45.909 Dermatitis Acute L30.9 Heartburn Acute R12 Headache Acute R51 Elevated serum creatinine Acute R79.89 Hyperlipidemia Chronic E78.5 Anxiety disorder Chronic 04/30/13 F41.9 S/P right knee arthroscopy Acute Z98.890 delivery delivered Acute O82 History of toe surgery Acute Z98.890 H/O: hysterectomy Chronic Z90.710 Primary osteoarthritis of right knee Chronic M17.11 Medical History Medical History Heart murmur Per pt. states she has had this all her life, and never had any issues with it Myopia Refractive amblyopia of both eyes Spongiotic dermatitis Arthropathy Hip pain Shoulder pain Sinusitis Family history of breast cancer Elevated blood pressure reading [place] Hammertoe of right foot Chronic constipation Knee joint pain Vitamin D deficiency Surgical History Surgical History H/O right knee surgery Tobacco Smoking/Tobacco Use Status: Current every day Tobacco Type: cigarettes Smoking packs per day: 0.5 Smoking cigarettes per day: 10.0 Alcohol Alcohol Intake: current Alcohol intake frequency: holidays/special occasions only Substance Use Substance use: Never Substance use type: does not use Vital Signs and Lab Results Vital Signs Most Recent Vital Signs in EMR: Most Recent Vital Signs Temp Pulse Resp BP Pulse Ox 36.2 C L 72 16 145/84 H 95 03/09/24 06:05 03/09/24 06:05 03/09/24 06:05 03/09/24 06:05 03/09/24 06:05 Lab Results Blood Type / Crossmatch: No Data to Display Complete Blood Count: No Data to Display Complete Metabolic Panel: No Data to Display Liver Function Panel: No Data to Display Coagulation Panel: No Data to Display Cardiac Panel: No Data to Display Arterial Blood Gas: No Data to Display Venous Blood Gas: No Data to Display Pancreas Panel: No Data to Display Thyroid Panel: No Data to Display Infectious Disease: No Data to Display Blood Cultures: No Data to Display Toxicology Panel: No Data to Display Panel: No Data to Display Anesthesia Assessment and Plan Anesthesia History Personal History: No History of Anesthesia Complications Family History: No Family History of Anesthesia Complications Exercise Tolerance Exercise Tolerance: Metabolic Equivalents<4 Pertinent Negatives Pertinent Negatives: No Major Cardiovascular Symptoms or Complaints and No Major Pulmonary Symptoms or Complaints Cardiac & Pulmonary Exam Cardiac Exam: Normal S1/S2 Heart Sounds Pulmonary Exam: Clear Bilateral Breath Sounds Cardiac and Pulmonary Comment:: Chronic cough, inhaler use most nights Implantable Cardiac Device Does patient have a Pacemaker or an ICD?: No Airway Exam Known Difficult Airway: No Mallampati Class: 2 Mouth Opening: Normal (> 3cm) Thyromental Distance: Greater than 3 cm Neck Range of Motion: Full ROM Neck Circumference: Normal Teeth Condition: Normal Dentition and Removable Dentures/Plates Upper ASA Classification ASA Score: ASA 3 Emergency Case?: No NPO Status NPO Status: NPO Clears >2 hours, Solids >8 hours Status Status: History of Hysterectomy Anesthesia Plan Resuscitation Status: Full Code Anesthesia Technique: MAC Anesthesia Airway Planned: Natural Airway Monitors Used: Standard Monitors
[2024-03-09 07:17] VITALS: BMI 34.2
[2024-03-09] MEDS: Tetracaine 0.5% 4 ML BTL OS (07:34)
[2024-03-09] MEDS: Povidone-Iodine Ophth 30 ML BTL (07:35)
[2024-03-09] MEDS: Duovisc Viscoelastic System EACH 1 EACH (07:40)
[2024-03-09] MEDS: Balanced Salt Soln.-PLUS 500 ML BAG OP (07:40)
[2024-03-09] MEDS: Lidocaine 1% Pres-Free 5 ML VIAL (07:41)
[2024-03-09] MEDS: Prednisolone 1%, Moxifloxacin 0.5%, Bromfenac 0.09% 5.6ML BTL OS (07:55)
--- NOTE | 2024-03-09 08:04 | W.PM.DSUDISC ---
Date of service: 03/09/24 Time of Service: 08:04 Discharge Plan Disposition Patient Disposition: Home Discharge Details Attending Provider: Yfn Pena Primary Care Provider: Aly Hooker Home Meds and New Rx's Prescriptions: No Action albuterol sulfate [ProAir HFA] 90 mcg/actuation HFA aerosol inhaler 2 puff inhalation Q6H PRN diclofenac sodium [Voltaren Arthritis Pain] 1 % gel 4 g topical QID PRN (Reason: Right knee pain) Qty: 100 0RF Rx Instructions: apply to right knee alum-mag hydroxide-simeth [Maalox Maximum Strength] 355 ML suspension 10 ml PO PRN Discharge Instructions Stand Alone Forms: DSU Post-Op Cataract, Brent Stein (DSU) Discharge Orders Discharge Orders: Discharge Order (Routine); Ordered 03/09/24 Ordered By: Yfn Pena DS: Diagnosis Discharge Diagnosis (1) Posterior subcapsular age-related cataract of left eye: Status: Resolved (2) Nuclear age-related cataract, left eye: Status: Resolved
[2024-03-09 08:05] VITALS: BP 144/79; PULSE 64; RESP 16; TEMP 36.4; O2SAT 97
--- NOTE | 2024-03-09 08:05 | W.PM.OP ---
Date of service: 03/09/24 Time of Service: 08:05 Operative Note Operative Note DATE OF PROCEDURE: 03/09/24 PRE-OP DIAGNOSIS: Nuclear/posterior subcapsular cataract, left eye POST-OP DIAGNOSIS: same PROCEDURE: Cataract extraction using phacoemulsification with intraocular lens implant, left eye SURGEON: Yfn Pena ANESTHESIA TYPE: Local By Surgeon and MAC Refer to Anesthesia Record PATHOLOGY: none sent COMPLICATIONS: None Patient was transported to: same day Patient's condition: stable Implants: Jorge Alberto and Jorge Alberto Tecnis Eyhance [id number] Indications: Progressive decreased vision due to cataract, left eye Procedure Description: CATARACT SURGERY OPERATIVE REPORT PREOPERATIVE DIAGNOSIS: 1. Nuclear/posterior subcapsular cataract, left eye POSTOPERATIVE DIAGNOSIS: Same OPERATION: 1. Cataract extraction using phacoemulsification with posterior chamber intraocular lens implant, left eye. IOL: IOL Technology Strategist/Model: Jorge Alberto & Jorge Alberto Tecnis Eyhance DIB00 IOL Power: + 16.5 diopters IOL Serial Number: [id number] Optic Diameter: 6.0 mm Haptic/Overall Diameter: 13.0 mm PHACO INFO: Kevin Chimerixurion Vision System with OZil and Active Fluidics Cumulative Dispersed Energy (CDE): 0.0 seconds SURGEON: Yfn Pena MD, MARY ANN ANESTHESIA: Monitored A [facility] (MAC), with local sub-tenon's anesthetic infiltration COMPLICATIONS: None SPECIMENS: None INDICATIONS FOR PROCEDURE: The patient is a 48-year-old lady with history of diminished visual acuity in her left eye secondary to the development of nuclear/posterior subcapsular cataract. She is significantly symptomatic that she desires cataract surgery and attempt to improve and maximize her vision. The option of cataract surgery was offered to the patient and she wished to proceed. See office notes for detailed information PROCEDURE: The correct surgical eye was identified and marked as the left eye and the pupil was dilated in the preoperative area using mydriatics and cycloplegics. The dilated pupil size was 8.0 mm. Oral sedation was administered in the form of an Imprimis MKO Melt (midazolam 3mg/ketamine 25mg/ondansetron 2mg). The patient was brought to the operating room where cardiopulmonary monitoring was instituted and surgical time-out was performed, confirming the correct operative eye and IOL power. Topical anesthesia was administered and ophthalmic povidone-iodine 5% was instilled into the conjunctival fornices. The isidra-ocular area was prepped with Betadine 10% solution and draped in the usual sterile fashion for intraocular surgery, including an aperture drape. A Tegaderm transparent film dressing was cut in half and used to cover the lashes and lid margins. Care was taken to sequester the lashes and lid margins under the Tegaderm dressing. A lid speculum was placed between the lids of the operative eye and the Kevin LuxOR Revalia operating microscope was maneuvered into position. Yann scissors were then used to make a conjunctival buttonhole approximately 6mm posterior to the limbus in the inferonasal quadrant. Blunt dissection was carried out to expose bare sclera, and a blunt-tipped sub-tenon?s anesthesia cannula was introduced and passed posteriorly along the globe where non-preserved plain lidocaine was injected into posterior sub-Tenon?s space. A sideport knife was used to make a paracentesis port. Intraocular phenylephrine/lidocaine was injected into the anterior chamber.. The anterior chamber was filled with viscoelastic. A keratome knife was used to construct a 2-plane near-clear corneal tunnel extending 2.0mm into clear cornea. A flap was raised on the anterior capsule and capsulorhexis forceps were used to complete a continuous curvilinear capsulorhexis of 5.0 mm. Balanced salt solution was then used to perform cortical cleaving hydrodissection and nuclear hydrodelineation until the lens could be freely rotated within the capsular bag. The lens nucleus was then disassembled and removed within the capsular bag and iris plane using phacoemulsification. Residual cortical material was removed using the irrigation/aspiration handpiece. The posterior capsule was carefully polished to remove as much residual lens epithelial cells as safely possible. The capsular bag was then inflated and the anterior chamber deepened with viscoelastic. The lens implant described above was inserted into the capsular bag using the Jorge Alberto and Jorge Alberto Simplicity pre-loaded injector. A Kuglen hook was used to dial the IOL into position. Residual viscoelastic was then removed first from posterior to the IOL, then from the anterior chamber using the I/A handpiece. The lens implant was noted to center nicely within the capsular bag. The incisions were stromally hydrated, and the anterior chamber was reformed using BSS. Then 0.5cc of moxifloxacin 1.0mg/ml were injected into the capsular bag and anterior chamber. The incisions were checked with a Weck spear and found to be secure. Several drops of ophthalmic povidone-iodine 5% were then applied to the eye followed by two drops of Imprimis combination prednisolone/moxifloxacin/nepafenac solution. The drapes were removed and a clear plastic protective eye shield was placed over the eye. The patient was then returned to Same Day Surgery in stable condition.
[2024-03-09 08:35] VITALS: BP 142/80; PULSE 74; RESP 8; TEMP 36.4; O2SAT 96
--- NOTE | 2024-03-09 08:38 | W.ANESPOSTOP ---
Postoperative Evaluation Date, Time and Location Date Performed: 03/09/24 Time Performed: 08:11 Patient Location: Day Surgery Unit Vital Signs Most Recent Imported Vital Signs: Most Recent Vital Signs Temp Pulse Resp BP Pulse Ox 36.4 C L 64 16 144/79 H 97 03/09/24 08:05 03/09/24 08:05 03/09/24 08:05 03/09/24 08:05 03/09/24 08:05 Pain Score Most Recent Pain Score: Most Recent Pain Score Pain Level 0 03/09/24 08:05 Assessment Mental Status: Awake (Alert & Oriented to Patient Baseline) Airway and Respiratory Function: Patent airway with normal (patient baseline) respiratory exam Cardiovascular Function: Hemodynamically Stable Hydration Status: Adequately Hydrated Nausea & Vomiting: No Nausea or Vomiting Pain: Pt. Denies Any Pain Peripheral Nerve Block: Patient did not receive a nerve block
== END 2024-03-09 08:35 | disposition home or self-care (01) ==
LOC: SUR 06:02
PROVIDERS: PCP Family Medicine; Visit Provider Ophthalmology
PROC: (CPT 66984; principal; 2024-03-09 07:30)
DX: H25.042 Posterior subcapsular polar age-related cataract, left eye (principal); H25.12 Age-related nuclear cataract, left eye
CPT/HCPCS: 66984; 00123; V2632; J2003

== ENCOUNTER 2024-03-23 08:41 | Day surgery (SDC) | payer MEDICARE, MEDICAID, SELFPAY ==
[2024-03-23 09:40] VITALS: BP 156/74; PULSE 69; RESP 16; TEMP 36.4; O2SAT 96
[2024-03-23] MEDS: Tropicam./Phenyleph. (1/2.5%) 5 ML BTL OD ×3 (09:40→09:50)
--- NOTE | 2024-03-23 10:23 | W.ANESPRE ---
General Info Date of Service Date Performed: 03/23/24 Height: 5 ft 4 in Weight: 90.7 kg Body Mass Index (BMI): 34.3 Surgical Procedure: Operation Date: 03/23/24 12:40 Proposed Procedure Side Surgeon p Cataract Extraction with IOL Implant Right Yfn Pena MD Meds Allergies and Home Medications Allergies Allergy/AdvReac Type Severity Reaction Status Date / Time cyclobenzaprine HCl (From Allergy Mild numbs her Verified 03/23/24 09:47 Flexeril) legs ketoprofen Allergy Mild Skin Rash Verified 03/23/24 09:47 levetiracetam (From Keppra) Allergy Unknown Unknown Verified 03/23/24 09:47 acetaminophen (From Percocet) Allergy Itching Verified 03/23/24 09:47 oxycodone HCl (From AdvReac Intermediate Agitation Verified 03/23/24 09:47 OxyContin) TIDE Allergy Unknown Hives Uncoded 03/23/24 09:47 FABRIC SOFTNER Allergy Hives Uncoded 03/23/24 09:47 ORUVAL Allergy Nausea Uncoded 03/23/24 09:47 Home Medication ?Medication ?Instructions ?Recorded aluminum-mag hydroxide-simethicone 10 ml PO PRN 04/26/13 400 mg-400 mg-40 mg/5 mL oral susp (Maalox Maximum Strength) albuterol sulfate 90 mcg/actuation 2 puff inhalation Q6H PRN 05/28/21 aerosol inhaler (ProAir HFA) diclofenac sodium 1 % topical gel 4 g topical QID PRN Right knee 06/10/21 (Voltaren Arthritis Pain) pain #100 grams Current Visit Medications: Current Medications Generic Name Dose Route Start Last Admin Trade Name Freq PRN Reason Stop Dose Admin Acetaminophen 1,000 mg 03/23/24 09:00 Acetaminophen 500 Mg Tab PO 04/22/24 08:59 Q4H PRN PRN Balanced Salt Solution 500 ml 03/23/24 09:00 Balanced Salt Soln.-Plus 500 Ml Bag OP 04/22/24 08:59 DIRECTED LITO Miscellaneous Medication 0 ml 03/23/24 09:00 Prednisolone 1%, Moxifloxacin 0.5%, Bromfenac 0.09% 5.6ml Btl OD 04/22/24 08:59 DIRECTED LITO Miscellaneous Medication 0 ml 03/23/24 09:00 11/22/24 09:50 Tropicam./Phenyleph. (1/2.5%) 5 Ml Btl OD 04/22/24 08:59 1 drp DIRECTED LITO Administration Tetracaine HCl 0 ml 03/23/24 09:00 Tetracaine 0.5% 4 Ml Btl OD 04/22/24 08:59 DIRECTED LITO PFSH Active Problems Active Problems: Problem Status Onset Code Nuclear age-related cataract, right eye Acute H25.11 Posterior subcapsular age-related cataract, right eye Acute H25.041 Nuclear age-related cataract, left eye Resolved H25.12 Posterior subcapsular age-related cataract of left eye Resolved H25.042 Achilles tendinosis of right lower extremity Acute M67.88 Corns and callosities Acute L84 Knee osteoarthritis Acute M17.10 Spastic hemiplegia affecting right dominant side Acute G81.11 Degenerative joint disease of right knee Chronic M17.11 Babinski reflex Acute R29.2 Left-sided weakness Acute R53.1 Tobacco use Acute Z72.0 Obesity Chronic E66.9 Depression Chronic F32.9 Cerebral palsy Chronic G80.9 Asthma Chronic J45.909 Dermatitis Acute L30.9 Heartburn Acute R12 Headache Acute R51 Elevated serum creatinine Acute R79.89 Hyperlipidemia Chronic E78.5 Anxiety disorder Chronic 04/30/13 F41.9 S/P right knee arthroscopy Acute Z98.890 delivery delivered Acute O82 History of toe surgery Acute Z98.890 H/O: hysterectomy Chronic Z90.710 Primary osteoarthritis of right knee Chronic M17.11 Medical History Medical History Heart murmur Per pt. states she has had this all her life, and never had any issues with it Myopia Refractive amblyopia of both eyes Spongiotic dermatitis Arthropathy Hip pain Shoulder pain Sinusitis Family history of breast cancer Elevated blood pressure reading [place] Hammertoe of right foot Chronic constipation Knee joint pain Vitamin D deficiency Surgical History Surgical History H/O right knee surgery Tobacco Smoking/Tobacco Use Status: Current every day Tobacco Type: cigarettes Smoking packs per day: 0.5 Smoking cigarettes per day: 10.0 Alcohol Alcohol Intake: current Alcohol intake frequency: holidays/special occasions only Substance Use Substance use: Never Substance use type: does not use Vital Signs and Lab Results Vital Signs Most Recent Vital Signs in EMR: Most Recent Vital Signs Temp Pulse Resp BP Pulse Ox 36.4 C L 69 16 156/74 H 96 03/23/24 09:40 03/23/24 09:40 03/23/24 09:40 03/23/24 09:40 03/23/24 09:40 Lab Results Blood Type / Crossmatch: No Data to Display Complete Blood Count: No Data to Display Complete Metabolic Panel: No Data to Display Liver Function Panel: No Data to Display Coagulation Panel: No Data to Display Cardiac Panel: No Data to Display Arterial Blood Gas: No Data to Display Venous Blood Gas: No Data to Display Pancreas Panel: No Data to Display Thyroid Panel: No Data to Display Infectious Disease: No Data to Display Blood Cultures: No Data to Display Toxicology Panel: No Data to Display Panel: No Data to Display Anesthesia Assessment and Plan Anesthesia History Personal History: No History of Anesthesia Complications Family History: No Family History of Anesthesia Complications Exercise Tolerance Exercise Tolerance: Metabolic Equivalents<4 Pertinent Negatives Pertinent Negatives: No Symptoms of GERD, No Major Cardiovascular Symptoms or Complaints and No Major Pulmonary Symptoms or Complaints Cardiac & Pulmonary Exam Cardiac Exam: Normal S1/S2 Heart Sounds Pulmonary Exam: Clear Bilateral Breath Sounds Implantable Cardiac Device Does patient have a Pacemaker or an ICD?: No Airway Exam Known Difficult Airway: No Mallampati Class: 2 Mouth Opening: Normal (> 3cm) Thyromental Distance: Greater than 3 cm Neck Range of Motion: Full ROM Neck Circumference: Normal Teeth Condition: Normal Dentition and Removable Dentures/Plates Upper ASA Classification ASA Score: ASA 3 Emergency Case?: No NPO Status NPO Status: NPO Clears >2 hours, Solids >8 hours Status Status: History of Hysterectomy Anesthesia Plan Resuscitation Status: Full Code Anesthesia Technique: MAC Anesthesia Airway Planned: Natural Airway Monitors Used: Standard Monitors
[2024-03-23 10:50] VITALS: BMI 34.3
[2024-03-23] MEDS: Tetracaine 0.5% 4 ML BTL OD (10:50)
[2024-03-23] MEDS: Duovisc Viscoelastic System EACH 1 EACH (10:56)
[2024-03-23] MEDS: Lidocaine 1% Pres-Free 5 ML VIAL (10:56)
[2024-03-23] MEDS: Balanced Salt Soln.-PLUS 500 ML BAG OP (11:00)
[2024-03-23] MEDS: Povidone-Iodine Ophth 30 ML BTL (11:00)
[2024-03-23] MEDS: Prednisolone 1%, Moxifloxacin 0.5%, Bromfenac 0.09% 5.6ML BTL OD (11:01)
--- NOTE | 2024-03-23 11:13 | W.PM.DSUDISC ---
Date of service: 03/23/24 Time of Service: 11:14 Discharge Plan Disposition Patient Disposition: Home Discharge Details Attending Provider: Yfn Pena Primary Care Provider: Aly Hooker Home Meds and New Rx's Prescriptions: No Action albuterol sulfate [ProAir HFA] 90 mcg/actuation HFA aerosol inhaler 2 puff inhalation Q6H PRN diclofenac sodium [Voltaren Arthritis Pain] 1 % gel 4 g topical QID PRN (Reason: Right knee pain) Qty: 100 0RF Rx Instructions: apply to right knee alum-mag hydroxide-simeth [Maalox Maximum Strength] 355 ML suspension 10 ml PO PRN Discharge Instructions Stand Alone Forms: DSU Post-Op Cataract, Brent Stein (DSU) Discharge Orders Discharge Orders: Discharge Order (Routine); Ordered 03/23/24 Ordered By: Yfn Pena DS: Diagnosis Discharge Diagnosis (1) Nuclear age-related cataract, right eye: Status: Resolved (2) Posterior subcapsular age-related cataract, right eye: Status: Resolved
--- NOTE | 2024-03-23 11:15 | ROE_ITS ---
Operative Note Operative Note PRE-OP DIAGNOSIS: Nuclear/posterior subcapsular cataract, right eye POST-OP DIAGNOSIS: same PROCEDURE: Cataract extraction using phacoemulsification with intraocular lens implant, right eye SURGEON: Yfn Pena ANESTHESIA TYPE: Local By Surgeon and MAC Refer to Anesthesia Record ESTIMATED BLOOD LOSS: 0 PATHOLOGY: none sent COMPLICATIONS: None Patient was transported to: same day Patient's condition: stable Implants: Jorge Alberto & Jorge Alberto Tecnis Eyhance [id number] Indications: Progressive visual loss due to cataract, right eye Procedure Description: CATARACT SURGERY OPERATIVE REPORT PREOPERATIVE DIAGNOSIS: 1. Nuclear/posterior subcapsular cataract, right eye POSTOPERATIVE DIAGNOSIS: Same OPERATION: 1. Cataract extraction using phacoemulsification with posterior chamber intraocular lens implant, right eye. IOL: IOL Calcine Furnace Tender/Model: Jorge Alberto & Jorge Alberto Tecnis Eyhance [id number] IOL Power: + 19.0 diopters IOL Serial Number: [id number] Optic Diameter: 6.0mm Haptic/Overall Diameter: 13.0mm PHACO INFO: KevinCorvilon Vision System with OZil and Active Fluidics Cumulative Dispersed Energy (CDE): 1.12 seconds SURGEON: Yfn Pena MD, MARY ANN ANESTHESIA: Monitored Anesthesia Care (MAC), with local sub-tenon's anesthetic infiltration COMPLICATIONS: None SPECIMENS: None INDICATIONS FOR PROCEDURE: The patient is a 48-year-old lady with history of diminished visual acuity in both eyes secondary to the development of bilateral nuclear/posterior subcapsular cataract in both eyes. She has already undergone cataract surgery in the left eye and is doing well postoperatively. She now presents for cataract surgery in the right eye. See office notes for detailed information. PROCEDURE: The correct surgical eye was identified and marked as the right eye and the pupil was dilated in the preoperative area using mydriatics and cycloplegics. The dilated pupil size was 7.0 mm. Oral sedation was administered in the form of an Imprimis MKO Melt (midazolam 3mg/ketamine 25mg/ondansetron 2mg). The patient was brought to the operating room where cardiopulmonary monitoring was instituted and surgical time-out was performed, confirming the correct operative eye and IOL power. Topical anesthesia was administered and ophthalmic povidone-iodine 5% was in stilled into the conjunctival fornices. The isidra-ocular area was prepped with Betadine 10% solution and draped in the usual sterile fashion for intraocular surgery, including an aperture drape. A Tegaderm transparent film dressing was cut in half and used to cover the lashes and lid margins. Care was taken to sequester the lashes and lid margins under the Tegaderm dressing. A lid speculum was placed between the lids of the operative eye and the Kevin LuxOR Revalia operating microscope was maneuvered into position. Yann scissors were then used to make a conjunctival buttonhole approximately 6mm posterior to the limbus in the inferonasal quadrant. Blunt dissection was carried out to expose bare sclera, and a blunt-tipped sub-tenon?s anesthesia cannula was introduced and passed posteriorly along the globe where non- preserved plain lidocaine was injected into posterior sub-Tenon?s space. A sideport knife was used to make a paracentesis port. Intraocular phenylephrine/lidocaine was injected into the anterior chamber. The anterior chamber was filled with viscoelastic. A keratome knife was used to construct a 2-plane clear corneal tunnel extending 2.0mm into clear cornea. A flap was raised on the anterior capsule and capsulorhexis forceps were used to complete a continuous curvilinear capsulorhexis of 5.0 mm. Balanced salt solution was then used to perform cortical cleaving hydrodissection and nuclear hydrodelineation until the lens could be freely rotated within the capsular bag. The lens nucleus was then disassembled and removed within the capsular bag and iris plane using phacoemulsification. Residual cortical material was removed using the I/A handpiece. The posterior capsule was carefully polished to remove as much residual lens epithelial cells as safely possible. The capsular bag was then inflated and the anterior chamber deepened with cohesive viscoelastic. The lens implant described above was inserted into the capsular bag using the Jorge Alberto and Estefany Simplicity pre- loaded injector. A Kuglen hook was used to dial the IOL into position. Residual viscoelastic was then removed first from posterior to the IOL, then from the anterior chamber using the I/A handpiece. The lens implant was noted to center nicely within the capsular bag. The incisions were stromally hydrated, and the anterior chamber was reformed using BSS. Then 0.5cc of moxifloxacin 1.0mg/ml were injected into the capsular bag and anterior chamber. The incisions were checked with a Weck spear and found to be secure. Several drops of ophthalmic povidone-iodine 5% were then applied to the eye followed by two drops ocombination steroid/NSAID/antibiotic solution. The drapes were removed and a clear plastic protective eye shield was placed over the eye. The patient was then returned to Same Day Surgery in stable condition. Date of Procedure: 03/23/24
[2024-03-23 11:21] VITALS: BP 158/83; PULSE 63; RESP 16; TEMP 36.2; O2SAT 97
--- NOTE | 2024-03-23 11:36 | W.ANESPOSTOP ---
Postoperative Evaluation Date, Time and Location Date Performed: 03/23/24 Time Performed: 11:15 Patient Location: Day Surgery Unit Vital Signs Most Recent Imported Vital Signs: Most Recent Vital Signs Temp Pulse Resp BP Pulse Ox 36.2 C L 63 16 158/83 H 97 03/23/24 11:21 03/23/24 11:21 03/23/24 11:21 03/23/24 11:21 03/23/24 11:21 Pain Score Most Recent Pain Score: Most Recent Pain Score Pain Level 0 03/23/24 11:21 Assessment Mental Status: Awake (Alert & Oriented to Patient Baseline) Airway and Respiratory Function: Patent airway with normal (patient baseline) respiratory exam Cardiovascular Function: Hemodynamically Stable Hydration Status: Adequately Hydrated Nausea & Vomiting: No Nausea or Vomiting Pain: Pt. Denies Any Pain Peripheral Nerve Block: Patient did not receive a nerve block
[2024-03-23 11:46] VITALS: BP 140/87; PULSE 70; RESP 16; TEMP 36.2; O2SAT 94
== END 2024-03-23 11:55 | disposition home or self-care (01) ==
LOC: SUR 08:43
PROVIDERS: PCP Family Medicine; Visit Provider Ophthalmology
PROC: (CPT 66984; principal; 2024-03-23 12:30)
DX: H25.11 Age-related nuclear cataract, right eye (principal); H25.041 Posterior subcapsular polar age-related cataract, right eye; Z98.42 Cataract extraction status, left eye
CPT/HCPCS: 66984; 00123; V2632; J2003

== ENCOUNTER 2025-03-26 10:33 | Outpatient (REF) | payer MEDICARE, MEDICAID, SELFPAY ==
[2025-03-26 16:18] LABS: HCT 49.8 % (36.0-46.0); HGB 15.8 g/dL (11.2-15.7); MCH 27.1 pg (27.0-33.0); MCHC 31.7 % (32.0-36.0); MCV 85 fL (80-95); MPV 10.1 fL (8.0-11.0); Platelet Count 294 10^3/uL (130-400); RBC 5.84 10^6/uL (3.93-5.22); RDW 15.0 % (11.7-14.6); RDW-SD 46.7 fL; WBC 6.62 10^3/uL (4.4-10.8)
[2025-03-26 16:28] LABS: Vitamin D 25 Total 9 ng/mL (30-100)
[2025-03-26 16:33] LABS: Hemoglobin A1C 5.4 % (<5.7)
[2025-03-26 16:35] LABS: ALT 35 U/L (10-49); AST 27 U/L (<34); Albumin 4.4 g/dL (3.2-5.0); Alkaline Phosphatase 97 U/L (46-116); Anion Gap 5.8 mmol/L (3-11); BUN 15 mg/dL (9-23); Bilirubin, Total 0.40 mg/dL (0.2-1.2); CO2 26.2 mmol/L (20.0-31.0); Calcium 9.7 mg/dL (8.3-10.6); Chloride 111 mmol/L (98-107); Cholesterol 290 mg/dL (<200); Glucose 78 mg/dL (74-106); HDL Cholesterol 52 mg/dL (>40); Potassium 4.3 mmol/L (3.5-5.1); Sodium 143 mmol/L (136-145); Total Protein 6.9 g/dL (5.7-8.2)
== END 2025-03-26 10:34 | disposition home or self-care (01) ==
LOC: NCHCN 10:33
PROVIDERS: PCP Family Medicine; Visit Provider Family Medicine
DX: E78.5 Hyperlipidemia, unspecified (principal); E66.9 Obesity, unspecified; R03.0 Elevated blood-pressure reading, without diagnosis of hypertension; E55.9 Vitamin D deficiency, unspecified; Z13.1 Encounter for screening for diabetes mellitus
CPT/HCPCS: 80053; 80061; 82306; 85027; 83036